=== PATIENT | male | born 1930 | race Caucasian/White ===

== ENCOUNTER 2016-08-05 06:23 | Inpatient (IN) | payer BC, MEDICARE, OTHER ==
[~2016-08-05] VITALS: Ht 180.3 cm; Wt 80.5 kg
[2016-08-05] VITALS (10 sets, daily range): BP systolic 95–132; BP diastolic 57–79; PULSE 80–106; RESP 16–22; TEMP 97.8–102.1; O2SAT 89–95
[~2016-08-05 06:23] MED LIST: ACET325S8 PO; ALBU25IPRN INH; ALLO300T2 PO; AZIT250T43 PO; CEFU1TAB43 PO; CITA10SO PO; CREON24 PO; DILTCD120 PO; DOCU1CAP39 PO; DONE10TA14 PO; ECOT81TA2 PO; IMOD2TAB PO; KCL20 PO; LEVO150T7 PO; MAGN30S PO; MIRA25TA PO; NYST100010 TOP; PRIN5TAB PO; RAPA8CAP PO; TAMS0.4C67 PO
--- NOTE | 2016-08-05 06:28 | PD ---
HPI Chief Complaint: altered mental status Time Seen by Provider: 06:25 Travel History International Travel<30 days: No Contact w/Intl Traveler<30days: No History of Present Illness HPI This is an 85-year-old male who presents from an assisted living haven't been found on his lower, unclear if he fell or he was laying there. The senior living says he was last seen normal at 11:00 with this is unclear whether this was in the morning or the evening. The patient is unable to verbalize any complaints. PFSH Past Medical History Depression: Yes Cancer: No Cardiovascular Problems: Yes (CAD) Coronary Artery Disease: Yes Dementia: Yes Diminished Hearing: Yes Endocrine: Yes Gout: Yes Genitourinary: Yes (BPH, UTI ) Hypertension: Yes Immune Disorder: No Musculoskeletal: No Neurologic: Yes (Dementia) Psychiatric: Yes Reproductive: No Respiratory: No Immunizations Current: Yes Thyroid Disease: Yes Past Surgical History Other Surgery: No Social History Alcohol Use: Yes (ONCE A WEEK) Tobacco Use: No Substance Use: No Allergies-Medications (Allergen,Severity, Reaction): Coded Allergies: No Known Allergies (Unverified , 08/05/16) Reported Meds & Prescriptions Reported Meds & Active Scripts Active Mycostatin Ointment (Nystatin) 15 Gm Oint 1 Dose TOP BID 10 Days Kcl 20 Meq Tab (Potassium Chloride) 20 Meq Tabcr 20 Meq PO DAILY 3 Days Azithromycin 250 Mg Tab 250 Mg PO DAILY 10 Days Ceftin 500 Mg Tab (Cefuroxime Axetil) 500 Mg Tab 500 Mg PO BID 10 Days Milk Of Magnesia (Magnesium Hydroxide) 30 Ml Susp 30 Ml PO Q12H PRN 90 Days Colace 100 Mg Cap (Docusate Sodium) 100 Mg Cap 100 Mg PO BID 90 Days Diltiazem HCl ER (Diltiazem HCl) 120 Mg Cap 120 Mg PO DAILY 90 Days Ecotrin (Aspirin) 81 Mg Tabec 81 Mg PO DAILY 90 Days Albuterol Sulfate 0.083 % Neb 2.5 Mg INH Q2HR NEB PRN Reported Flomax (Tamsulosin HCl) 0.4 Mg Cap 0.4 Mg PO DAILY Donepezil 10 mg 10 Mg Tab 10 Mg PO DAILY Imodium A-D (Loperamide HCl) 2 Mg Tab 2 Mg PO Q6H PRN DO NOT EXCEED 8 CAPSULES/TABLETS 24 HOURS Acetaminophen 325 Mg Tab 650 Mg PO Q6 PRN Creon (Amylase/Lipase/Protease) 24,000 Unt Cap 24,000 Units PO TID TAKE BEFORE MEALS Prinivil (Lisinopril) 5 Mg Tab 5 Mg PO DAILY Rapaflo 8 mg (Silodosin 8 mg) 8 Mg Cap 8 Mg PO DAILY Myrbetriq (Mirabegron) 25 Mg Tab 25 Mg PO DAILY Levothyroxine 150 mcg (Levothyroxine Sodium) 150 Mcg Tab 150 Mcg PO DAILY Citalopram Hydrobromide 10 Mg/5 Ml Payton 10 Mg PO DAILY Allopurinol 300 Mg Tab 300 Mg PO DAILY Review of Systems ROS Limitations: Altered Mental Status Physical Exam Narrative GENERAL: Frail, elderly male in no acute distress SKIN: Warm and dry. HEAD: Atraumatic. Normocephalic. EYES: Pupils equal and round. No injection or drainage. ENT: Dry mucous membranes. NECK: Trachea midline. CARDIOVASCULAR: Regular rate and rhythm. No murmur appreciated. RESPIRATORY: Clear to auscultation. Breath sounds equal bilaterally. GASTROINTESTINAL: Abdomen soft, tender to palpation in the suprapubic region with some fullness in the lower abdomen. MUSCULOSKELETAL: No obvious deformities. NEUROLOGICAL: Confused, mumbling but not saying words Moving all extremities. PSYCHIATRIC: Agitated Data Data Last Documented VS Vital Signs Date Time Temp Pulse Resp B/P Pulse Ox O2 Delivery O2 Flow Rate FiO2 08/05/16 06:57 102.1 08/05/16 06:33 Room Air 08/05/16 06:26 103 20 95/57 92 Orders Complete Blood Count With Diff (08/05/16 06:26) Comprehensive Metabolic Panel (08/05/16 06:26) Prothrombin Time / Inr (Pt) (08/05/16 06:26) Act Partial Throm Time (Ptt) (08/05/16 06:26) Lactic Acid Sepsis Protocol (08/05/16 06:26) Troponin I (08/05/16 06:26) Urinalysis - C+S If Indicated (08/05/16 06:26) Blood Culture (08/05/16 06:26) Blood Glucose (08/05/16 06:26) Ecg Monitoring (08/05/16 06:26) Iv Access Insert/Monitor (08/05/16 06:26) Oximetry (08/05/16 06:26) Oxygen Administration (08/05/16 06:26) Ct Brain W/O Iv Contrast(Rout) (08/05/16 06:26) Chest, Single Ap (08/05/16 ) Cath For Specimen (08/05/16 06:26) Sodium Chlor 0.9% 1000 Ml Inj (Ns 1000 M (08/05/16 06:30) Sodium Chlor 0.9% 1000 Ml Inj (Ns 1000 M (08/05/16 06:30) Creatine Kinase (Cpk) (08/05/16 06:30) Vancomycin Inj (Vancomycin Inj) (08/05/16 07:00) Cefepime Inj (Maxipime Inj) (08/05/16 07:00) Electrocardiogram (08/05/16 06:32) MDM Medical Decision Making Medical Screen Exam Complete: Yes Emergency Medical Condition: Yes Differential Diagnosis Urinary tract infection, pneumonia, sepsis, electrolyte abnormality, intracranial hemorrhage Narrative Course This is an 85-year-old male who presents to the emergency department with altered mental status. He is febrile and tachycardic consistent with sepsis. He was placed on a monitor and an IV was established. Labs were obtained. He was given 2 L of IV hydration, IV vancomycin and cefepime. Case is signed out to Dr. Cole who will follow-up on the patient's results. Doreen De La Cruz MD Aug 05, 2016 06:28
[2016-08-05] MEDS ORDERED: SODIUM CHLOR 0.9% 1000 ML INJ 1,000 ML IV ONE ×2 (06:30)
--- NOTE | 2016-08-05 06:54 | RADRPT ---
EXAM DATE/TIME: 08/05/2016 06:35 [facility] COMPARISON: CHEST SINGLE AP, August 26, 2015, 10:08. INDICATIONS : Shortness of breath. MEDICAL HISTORY : None. SURGICAL HISTORY : None. ENCOUNTER: Initial ACUITY: 1 day PAIN SCORE: Non-responsive. LOCATION: Bilateral chest FINDINGS: A single view of the chest demonstrates mild infiltrate in the right middle lobe and left lower lung. Otherwise the rest of the lungs are grossly clear. There are no pleural effusions or pulmonary edema . The heart size is stable. The bony structures are stable.. CONCLUSION: Mild right middle lobe infiltrate and left lower lung infiltrate. Jhony Wahl MD on August 05, 2016 at 6:51 Board Certified Radiologist. This report was verified electronically.
[2016-08-05] MEDS ORDERED: CEFEPIME INJ 2,000 MG in SODIUM CHLORIDE 0.9% INJ 100 ML IV ONE (07:00)
[2016-08-05] MEDS ORDERED: VANCOMYCIN INJ 1,000 MG in SODIUM CHLOR 0.9% 250 ML INJ 250 ML IV ONE (07:00)
--- NOTE | 2016-08-05 07:21 | RADRPT ---
EXAM DATE/TIME: 08/05/2016 07:08 [facility] COMPARISON: CT BRAIN W/O CONTRAST, August 18, 2015, 13:06. INDICATIONS : Found on floor RADIATION DOSE: 45.82 CTDIvol (mGy) MEDICAL HISTORY : Cardiovascular disease. Hypertension. SURGICAL HISTORY : None. ENCOUNTER: Initial ACUITY: 1 day PAIN SCALE: 0/10 LOCATION: cranial TECHNIQUE: Multiple contiguous axial images were obtained of the head. Using automated exposure control and adj ustment of the mA and/or kV according to patient size, radiation dose was kept as low as reasonably a chievable to obtain optimal diagnostic quality images. FINDINGS: CEREBRUM: The ventricles are normal for age. No evidence of midline shift, mass lesion, hemorrhage or acute in farction. No extra-axial fluid collections are seen. POSTERIOR FOSSA: The cerebellum and brainstem are intact. The 4th ventricle is midline. The cerebellopontine angle i s unremarkable. EXTRACRANIAL: The visualized portion of the orbits is intact. Extensive sinus disease is appreciated with mucoperio steal thickening in the maxillary sinuses as well as extensive changes in the bilateral ethmoid air c ells and air-fluid levels in the sphenoid SKULL: The calvaria is intact. No evidence of skull fracture. CONCLUSION: Intracranially normal for age with no change . Extensive sinus disease as described above John Schmitz MD on August 05, 2016 at 7:17 Board Certified Radiologist. This report was verified electronically.
[2016-08-05 07:56] LABS: BASOPHIL # 0.1 TH/MM3 (0-0.2); BASOPHIL % 0.3 % (0.0-2.0); HEMO FLAGS DIFF FINAL; LYMPH % 0.5 % (9.0-44.0); LYMPHOCYTE # 0.1 TH/MM3 (1.0-4.8); MEAN CELL VOLUME 93.9 FL (80.0-100.0); MEAN CORPUSCULAR HEMOGLOBIN 31.1 PG (27.0-34.0); MEAN CORPUSCULAR HGB CONC 33.2 % (32.0-36.0); MONO % 2.9 % (0.0-8.0); NEUT % 96.3 % (16.0-70.0); PLATELET COUNT 148 TH/MM3 (150-450); RED BLOOD COUNT 4.48 MIL/MM3 (4.50-5.90); RED CELL DISTRIBUTION WIDTH 15.7 % (11.6-17.2); WHITE BLOOD COUNT 18.7 TH/MM3 (4.0-11.0)
[2016-08-05 08:12] LABS: BACTERIA, URINE MANY /hpf; BLOOD, URINE LARGE (NEG); COMMENT (UR) CATH-CULTURE IND; CULTURE IF INDICATED CATH CULTURE IND; GLUCOSE,URINE NEG (NEG); KETONE, URINE NEG (NEG); NITRITE,URINE NEG (NEG); PH, URINE 5.5 (5.0-8.5); SQUAMOUS EPITHELIAL CELL URINE 8 /hpf (0-5)
[2016-08-05 08:13] LABS: URINE COLOR BROWN (YELLW/STRAW)
[2016-08-05 08:17] LABS: ALKALINE PHOSPHATASE 128 U/L (45-117); ALT (GPT) 16 U/L (12-78); ANION GAP 8 MEQ/L (5-15); AST (GOT) 20 U/L (15-37); BICARBONATE 25.7 MEQ/L (21.0-32.0); BLOOD UREA NITROGEN 36 MG/DL (7-18); CHLORIDE 104 MEQ/L (98-107); GLOMERULAR FILTRATION RATE 19 ML/MIN (>89); POTASSIUM 4.7 MEQ/L (3.5-5.1); SODIUM (NA) 138 MEQ/L (136-145)
[2016-08-05 08:18] LABS: INTERNATIONAL NORMALIZED RATIO 1.2 RATIO; PROTHROMBIN TIME - PATIENT 13.2 SEC (9.8-11.6)
--- NOTE | 2016-08-05 09:10 | PD ---
Physical Exam Date Seen by Provider: Aug 05, 2016 Time Seen by Provider: 09:08 Narrative 85-year-old male was brought in as confused found laying down on the floor of his apartment and possible sepsis. He had a temperature 102.5 upon arrival. Patient lives in an assisted care facility. His mental status is not at his baseline. Patient was seen by the previous ER physician who started a septic workup thinking patient probably has urosepsis. Blood test and urinalysis has come back and patient indeed has a UTI with sepsis. Chest x-ray also shows a possible infiltrate in the right middle lobe. Patient has received 2 L of IV fluid and onto his third liter as per the sepsis protocol. He was given IV cefepime and vancomycin orders by the previous ER physician. I just reassessed the patient and he still continues to be confused and delirious. CAT scan of the head is within normal limit. Awaiting for Dr. Neil who is his primary care physician to call back to admit the patient. Data Data Last Documented VS Vital Signs Date Time Temp Pulse Resp B/P Pulse Ox O2 Delivery O2 Flow Rate FiO2 08/05/16 08:42 101 22 132/62 94 Nasal Cannula 2 08/05/16 06:57 102.1 Orders Complete Blood Count With Diff (08/05/16 06:26) Comprehensive Metabolic Panel (08/05/16 06:26) Prothrombin Time / Inr (Pt) (08/05/16 06:26) Act Partial Throm Time (Ptt) (08/05/16 06:26) Lactic Acid Sepsis Protocol (08/05/16 06:26) Troponin I (08/05/16 06:26) Urinalysis - C+S If Indicated (08/05/16 06:26) Blood Culture (08/05/16 06:26) Blood Glucose (08/05/16 06:26) Ecg Monitoring (08/05/16 06:26) Iv Access Insert/Monitor (08/05/16 06:26) Oximetry (08/05/16 06:26) Oxygen Administration (08/05/16 06:26) Ct Brain W/O Iv Contrast(Rout) (08/05/16 06:26) Chest, Single Ap (08/05/16 ) Cath For Specimen (08/05/16 06:26) Sodium Chlor 0.9% 1000 Ml Inj (Ns 1000 M (08/05/16 06:30) Sodium Chlor 0.9% 1000 Ml Inj (Ns 1000 M (08/05/16 06:30) Creatine Kinase (Cpk) (08/05/16 06:30) Vancomycin Inj (Vancomycin Inj) (08/05/16 07:00) Cefepime Inj (Maxipime Inj) (08/05/16 07:00) Electrocardiogram (08/05/16 06:32) Urinary Catheter Insert/Apply (08/05/16 07:33) Urine Culture (08/05/16 07:15) Acetaminophen Supp (Tylenol Supp) (08/05/16 09:15) Admit Order (Ed Use Only) (08/05/16 09:23) Labs Laboratory Tests Test 08/05/16 07:15 White Blood Count 18.7 TH/MM3 Red Blood Count 4.48 MIL/MM3 Hemoglobin 13.9 GM/DL Hematocrit 42.0 % Mean Corpuscular Volume 93.9 FL Mean Corpuscular Hemoglobin 31.1 PG Mean Corpuscular Hemoglobin 33.2 % Concent Red Cell Distribution Width 15.7 % Platelet Count 148 TH/MM3 Mean Platelet Volume 8.1 FL Neutrophils (%) (Auto) 96.3 % Lymphocytes (%) (Auto) 0.5 % Monocytes (%) (Auto) 2.9 % Eosinophils (%) (Auto) 0.0 % Basophils (%) (Auto) 0.3 % Neutrophils # (Auto) 18.0 TH/MM3 Lymphocytes # (Auto) 0.1 TH/MM3 Monocytes # (Auto) 0.5 TH/MM3 Eosinophils # (Auto) 0.0 TH/MM3 Basophils # (Auto) 0.1 TH/MM3 CBC Comment DIFF FINAL Differential Comment Prothrombin Time 13.2 SEC Prothromb Time International 1.2 RATIO Ratio Activated Partial 29.0 SEC Thromboplast Time Urine Color BROWN Urine Turbidity CLOUDY Urine pH 5.5 Urine Specific [place] 1.020 Urine Protein 100 mg/dL Urine Glucose (UA) NEG mg/dL Urine Ketones NEG mg/dL Urine Occult Blood LARGE Urine Nitrite NEG Urine Bilirubin NEG Urine Urobilinogen 4.0 MG/DL Urine Leukocyte Esterase LARGE Urine RBC /hpf Urine WBC /hpf Urine WBC Clumps MANY Urine Squamous Epithelial 8 /hpf Cells Urine Amorphous Sediment RARE Urine Bacteria MANY /hpf Microscopic Urinalysis Comment CATH-CULTURE IND Sodium Level 138 MEQ/L Potassium Level 4.7 MEQ/L Chloride Level 104 MEQ/L Carbon Dioxide Level 25.7 MEQ/L Anion Gap 8 MEQ/L Blood Urea Nitrogen 36 MG/DL Creatinine 3.07 MG/DL Estimat Glomerular Filtration 19 ML/MIN Rate Random Glucose 132 MG/DL Lactic Acid Level 2.8 mmol/L Calcium Level 8.2 MG/DL Total Bilirubin 1.0 MG/DL Aspartate Amino Transf 20 U/L (AST/SGOT) Alanine Aminotransferase 16 U/L (ALT/SGPT) Alkaline Phosphatase 128 U/L Total Creatine Kinase 118 U/L Troponin I LESS THAN 0.02 NG/ML Total Protein 6.2 GM/DL Albumin 2.6 GM/DL [facility] Supervised Visit with PRITI: No Narrative Course 9:24 AM I was told by the nurse that several attempts to put a Sofia catheter was done as part of the sepsis protocol and measure the urine output. It was unsuccessful. The last attempt by the nurse was with a 14 Maltese coud catheter. I spoke with the admitting physician Dr. Neil and I have expressed this to him. In my opinion patient should get a urology consultation for possible enlarged prostate. He however did have a large urine output by incontinence and IV did not think he is fully obstructed. Physician Communication Physician Communication Dr. Neil Diagnosis Primary Impression: Sepsis Qualified Code: A41.9 - Sepsis, due to unspecified organism Additional Impressions: UTI (urinary tract infection) Qualified Code: N39.0 - Urinary tract infection without hematuria, site unspecified Pneumonia Qualified Code: J18.1 - Pneumonia of right middle lobe due to infectious organism Altered mental status Qualified Code: R41.0 - Delirium Acute renal failure Qualified Code: N17.9 - Acute renal failure, unspecified acute renal failure type Enlarged prostate Admitting Information Admitting Physician Requests: it Jackelyn Cole MD Aug 05, 2016 09:10
[2016-08-05] MEDS ORDERED: ACETAMINOPHEN 650 MG SUPP RECTAL ONE (09:15)
[2016-08-05 09:47] LABS: LACTIC ACID GHOST NOT REPORTABLE
--- NOTE | 2016-08-05 11:12 | HHI.HP ---
History of Present Illness Primary Care Physician Raymundo Neil MD Admission Diagnosis UTI, sepsis, AMS, pneumonia, enlarged prostate, acute renal failure Diagnoses: (1) Sepsis (2) UTI (urinary tract infection) (3) Altered mental status (4) Pneumonia (5) Enlarged prostate (6) Acute renal failure (7) Atrial fibrillation by electrocardiogram (8) Dehydration History of Present Illness 85 Y CM, FOUND DOWN IN HIS [facility] APT. APPEARS PT MAY BE ON HOSPICE. I CALLED [facility] YET NO ANSWER YET. PT SENT TO [facility]. FOUND TO BE SEPTIC OUTLINED BELOW. I SPOKE WITH THE ER MD FOR ADMISSION. THEY WERE UNABLE TO PASS [facility] AND SUGGESTED UROLOGIST. PT IS SEEN IN ER C POD. MUCH WEAKER THAN USUAL HE IS LETHARGIC AND NEAR COMATOSE. UNABLE TO OBTAIN HISTORY FROM HIM. SPOKE WITH RN HERE. CALLED OUT TO [facility]. Sepsis Criteria SIRS Criteria (2 or more): Temp > 100.9 or < 96.8 Sepsis Criteria (SIRS+source): Infect source susp/known Severe Sepsis (+one): Organ Dysfunction, Lactate >2 Multiple Organ Dysfunction Syn: Evidence -2 organs failing Criteria Outcome: Meets severe sepsis criteria Review of Systems ROS Limitations: Clinical Condition, Altered Mental Status, Uncooperative, Hearing Impaired, Poor Historian Past Family Social History Allergies: Coded Allergies: No Known Allergies (Unverified , 08/05/16) Past Medical History AF PNA Past Surgical History NC Family History NC Social History [facility] RES, RETIRED, NO E/T/D Physical Exam Vital Signs Vital Signs Date Time Temp Pulse Resp B/P Pulse Ox O2 Delivery O2 Flow Rate FiO2 08/05/16 10:47 20 08/05/16 10:02 106 22 125/60 95 Nasal Cannula 2 08/05/16 08:42 101 22 132/62 94 Nasal Cannula 2 08/05/16 08:42 94 Nasal Cannula 2 08/05/16 08:15 100 20 132/62 89 Room Air 08/05/16 06:57 102.1 08/05/16 06:33 Room Air 08/05/16 06:26 100.1 103 20 95/57 92 Physical Exam GENERAL: This is a chronically ill appearing, desheveled, lethargic SKIN: No rashes, ecchymoses or lesions. Cool and dry. HEAD: Atraumatic. Normocephalic. No temporal or scalp tenderness. EYES: Pupils equal round and reactive. Extraocular motions intact. No scleral icterus. No injection or drainage. ENT: Nose without bleeding, purulent drainage or septal hematoma. Throat without erythema, tonsillar hypertrophy or exudate. Uvula midline. Airway patent. NECK: Trachea midline. No JVD or lymphadenopathy. Supple, nontender, no meningeal signs. CARDIOVASCULAR: Regular rate and rhythm without murmurs, gallops, or rubs. RESPIRATORY: Clear to auscultation. Breath sounds equal bilaterally. No wheezes , rales, or rhonchi. GASTROINTESTINAL: Abdomen soft, non-tender, nondistended. No hepato-splenomegaly , or palpable masses. No guarding. MUSCULOSKELETAL: Extremities without clubbing, cyanosis, or edema. No joint tenderness, effusion, or edema noted. No calf tenderness. Negative Homans sign bilaterally. NEUROLOGICAL: Cranial nerves II through XII intact. Motor and sensory grossly within normal limits. 1 out of 5 muscle strength in all muscle groups. Laboratory Laboratory Tests Test 08/05/16 07:15 White Blood Count 18.7 Red Blood Count 4.48 Hemoglobin 13.9 Hematocrit 42.0 Mean Corpuscular Volume 93.9 Mean Corpuscular Hemoglobin 31.1 Mean Corpuscular Hemoglobin 33.2 Concent Red Cell Distribution Width 15.7 Platelet Count 148 Mean Platelet Volume 8.1 Neutrophils (%) (Auto) 96.3 Lymphocytes (%) (Auto) 0.5 Monocytes (%) (Auto) 2.9 Eosinophils (%) (Auto) 0.0 Basophils (%) (Auto) 0.3 Neutrophils # (Auto) 18.0 Lymphocytes # (Auto) 0.1 Monocytes # (Auto) 0.5 Eosinophils # (Auto) 0.0 Basophils # (Auto) 0.1 CBC Comment DIFF FINAL Differential Comment Prothrombin Time 13.2 Prothromb Time International 1.2 Ratio Activated Partial 29.0 Thromboplast Time Urine Color BROWN Urine Turbidity CLOUDY Urine pH 5.5 Urine Specific [place] 1.020 Urine Protein 100 Urine Glucose (UA) NEG Urine Ketones NEG Urine Occult Blood LARGE Urine Nitrite NEG Urine Bilirubin NEG Urine Urobilinogen 4.0 Urine Leukocyte Esterase LARGE Urine RBC Urine WBC Urine WBC Clumps MANY Urine Squamous Epithelial 8 Cells Urine Amorphous Sediment RARE Urine Bacteria MANY Microscopic Urinalysis Comment CATH-CULTURE IND Sodium Level 138 Potassium Level 4.7 Chloride Level 104 Carbon Dioxide Level 25.7 Anion Gap 8 Blood Urea Nitrogen 36 Creatinine 3.07 Estimat Glomerular Filtration 19 Rate Random Glucose 132 Lactic Acid Level 2.8 Calcium Level 8.2 Total Bilirubin 1.0 Aspartate Amino Transf 20 (AST/SGOT) Alanine Aminotransferase 16 (ALT/SGPT) Alkaline Phosphatase 128 Total Creatine Kinase 118 Troponin I LESS THAN 0.02 Total Protein 6.2 Albumin 2.6 Date/Time Procedure Status Source Growth 08/05/16 07:15 Urine Culture Received Urine Catheterized Urine Pending 08/05/16 07:15 Aerobic Blood Culture Received Blood Peripheral Pending 08/05/16 07:15 Anaerobic Blood Culture Received Blood Peripheral Pending Result Diagram: 08/05/1615 08/05/1615 Imaging Last [address] 08/05/16625 Signed Impressions: Service Date/Time: July 07:08 - CONCLUSION: Intracranially normal for age with no change . Extensive sinus disease as described above John Schmitz MD Chest X-Ray 08/05/16 0000 Signed Impressions: Service Date/Time: July 06:35 - CONCLUSION: Mild right middle lobe infiltrate and left lower lung infiltrate. Jhony Wahl MD Assessment and Plan Problem List: (1) Sepsis Status: Acute (2) Altered mental status Status: Acute (3) Enlarged prostate Status: Acute (4) Pneumonia Status: Acute (5) UTI (urinary tract infection) Status: Acute (6) Acute renal failure Status: Acute (7) Atrial fibrillation, chronic Status: Acute (8) Dehydration Status: Acute (9) Lactic acidosis Status: Acute (10) Weak Status: Acute Assessment and Plan PLAN: IV ABX IVF BLOOD CULTURES UA CS UROLOGY CONSULT FOR [facility] INSERTION ID CONSULT INPT ADMIT FOR THE ABOVE DX AND PLAN. EXPECT 5 D INPT STAY IF PT SURVIVES. PT WOULD W/O INPT ADMIT FOR THE ABOVE DX AND PLAN. SEE MY ORDERS PLEASE. Problem Qualifiers (1) Sepsis: Qualified Code: A41.9 - Sepsis, due to unspecified organism (2) UTI (urinary tract infection): Qualified Code: N39.0 - Urinary tract infection without hematuria, site unspecified (3) Altered mental status: Qualified Code: R41.0 - Delirium (4) Pneumonia: Qualified Code: J18.1 - Pneumonia of right middle lobe due to infectious organism (5) Acute renal failure: Qualified Code: N17.9 - Acute renal failure, unspecified acute renal failure type Raymundo Neil MD Aug 05, 2016 11:11
[2016-08-05] MEDS ORDERED: MAGNESIUM HYDROXIDE SUSP 30 ML CUP PO PRN ×2 (11:15→12:00)
[2016-08-05] MEDS ORDERED: METOCLOPRAMIDE HCL 10 MG/2 ML VIAL IV PUSH PRN (11:15)
[2016-08-05] MEDS ORDERED: SODIUM CHLORIDE 0.9% FLUSH 5 ML FLUSH FLUSH PRN (11:15)
[2016-08-05] MEDS ORDERED: ACETAMINOPHEN 325 MG TAB PO PRN (11:15)
[2016-08-05] MEDS ORDERED: PROCHLORPERAZINE 25 MG SUPP PR PRN (11:15)
[2016-08-05] MEDS ORDERED: NALOXONE HCL 0.4 MG/ML AMP IV PRN (11:15)
[2016-08-05] MEDS ORDERED: ONDANSETRON HCL 4 MG/2 ML VIAL IVP PRN (11:15)
[2016-08-05] MEDS ORDERED: BISACODYL 10 MG SUPP PR PRN (11:15)
[2016-08-05] MEDS ORDERED: LORazepam 2 MG/ML VIAL IV PUSH PRN (11:30)
[2016-08-05] MEDS ORDERED: hydrALAZINE HCL 20 MG/ML VIAL IV PUSH PRN (11:30)
[2016-08-05] MEDS ORDERED: Vancomycin Consult Pharmacy 1 EA XX SCH (11:30)
[2016-08-05] MEDS ORDERED: ACETAMINOPHEN/HYDROcodone 325 MG/5 MG TAB PO PRN (11:30)
[2016-08-05] MEDS ORDERED: cloNIDine HCL 0.1 MG TAB PO PRN (11:30)
[2016-08-05] MEDS ORDERED: IMOD2TAB3 PO (11:45)
[2016-08-05] MEDS ORDERED: MILKSUS PO (11:45)
[2016-08-05] MEDS ORDERED: ASPI1TAB91 PO (11:45)
[2016-08-05] MEDS ORDERED: NYST10007 TOPICAL (11:45)
[2016-08-05] MEDS ORDERED: MIRA50TA PO (11:45)
[2016-08-05] MEDS ORDERED: CREON24 PO (11:45)
[2016-08-05] MEDS ORDERED: DILT-60 PO (11:45)
[2016-08-05] MEDS ORDERED: CELE10TA PO (11:45)
[2016-08-05] MEDS ORDERED: TYLE325T PO (11:45)
[2016-08-05] MEDS ORDERED: LOPERAMIDE HCL 2 MG CAP PO PRN (11:45)
[2016-08-05] MEDS ORDERED: TAMS0.4C4 PO (11:45)
[2016-08-05] MEDS ORDERED: POTA-245 PO (11:45)
[2016-08-05] MEDS ORDERED: ALBU0.08 NEB (11:45)
[2016-08-05] MEDS ORDERED: ARIC10TA PO (11:45)
[2016-08-05] MEDS ORDERED: LEVO-154 PO (11:45)
[2016-08-05] MEDS ORDERED: ALLO300T2 PO (11:45)
[2016-08-05] MEDS: RESP: ALBUTEROL 2.5 MG/IPRATROPIUM 0.5 MG NEB (SCH) NEB ×2 (11:49→16:45)
[2016-08-05] MEDS ORDERED: ONDANSETRON HCL 4 MG/2 ML VIAL IV PUSH ONE (12:00)
[2016-08-05] MEDS ORDERED: ePHEDrine/NS 25 MG/5 ML SYR IV ONE (12:00)
[2016-08-05] MEDS ORDERED: PROPOFOL 200 MG/20 ML AMP IV ONE (12:00)
[2016-08-05] MEDS ORDERED: PHENYLEPH/NS 1000 MCG/10 ML SYR IV ONE (12:00)
[2016-08-05] MEDS: SODIUM CHLOR 0.9% 1000 ML INJ 1,000 ML IV SCH ×2 (12:26→21:40)
[2016-08-05] MEDS: HEPARIN SODIUM - SQ 10,000 UNITS/ML VIAL SQ SCH (12:27)
[2016-08-05] MEDS: LIPASE/PROTEASE/AMYLASE (24,000/76,000/120,000) CAP PO SCH ×2 (13:00→18:00)
[2016-08-05] MEDS: PIPERACIL-TAZO 3.375 GM PREMIX 50 ML IV SCH ×2 (14:06→21:40)
--- NOTE | 2016-08-05 14:35 | MB ---
cc: BRANDIN BUCK MD DATE OF CONSULTATION: 08/05/2016 REASON FOR CONSULTATION 1. Difficult Sofia catheter placement. 2. Urosepsis. 3. Renal failure. 4. History of prostate cancer status post external beam radiation with brachytherapy. HISTORY OF PRESENT ILLNESS The patient is an 85-year-old male with history of prostate cancer status post external beam radiation and brachytherapy who presented from assisted living earlier this morning after he was found on the floor with altered mental status. [place] [facility] says he was last seen around 11 o'clock last night and was doing fine. However, this morning when went to check on him he was laying on the floor and seemed to be very confused. A Sofia catheter was attempted to be placed at the assisted living facility but was unsuccessful and it was noted that his urine had a strong odor to it and appeared to be a purulent-like material. He was then transferred to [facility] for further evaluation. In the [facility] he was attempted to have a Sofia catheter placed but was unsuccessful and urology was consulted for catheter placement. He was also found to have elevated white count of 18,000, febrile 103 and a creatinine of 3.0. The patient is confused and unable to give accurate history. PAST MEDICAL HISTORY Significant for: 1. Prostate cancer. 2. Hypertension. 3. Coronary artery disease. 4. Dementia. 5. History of COPD. 6. Atrial fibrillation. PAST SURGICAL HISTORY None per the records. FAMILY HISTORY Unobtainable. SOCIAL HISTORY Unobtainable. ALLERGIES NO KNOWN DRUG ALLERGIES. REVIEW OF SYSTEMS Unobtainable. PHYSICAL EXAMINATION VITAL SIGNS: Temperature 102.1, pulse 87, respiratory rate 20, BP 119/59, sating 95% on nasal cannula at 2 liters. GENERAL: He is awake but disoriented, no apparent distress. HEENT: Head is normocephalic, atraumatic. No scleral icterus. Extraocular muscles intact. LUNGS: Clear to auscultation bilaterally. No wheezes, rales or rhonchi. HEART: Regular rhythm. ABDOMEN: Soft, nontender, nondistended. Positive bowel sounds. GENITOURINARY: His bladder is slightly palpable. His penis is uncircumcised. Testes descended bilaterally, normal in size and consistency. RECTAL: Not indicated at this time. EXTREMITIES: Nontender, no clubbing, cyanosis or edema. SKIN: No ulcers or rashes. PSYCHE: He is confused. LABORATORY DATA Labs show white count 18.7, hemoglobin 13.5, hematocrit 42.0, platelet count 148, sodium 130, potassium 4.7, chloride 104, bicarb 25.7, BUN 36, creatinine 3.07, glucose 132. His urine showed large leukocyte esterase, large occult blood with negative nitrates. IMAGING STUDIES None. ASSESSMENT The patient is a 85-year-old male with history of prostate cancer status post external beam radiation and brachytherapy, who presents with what appears to be urosepsis with acute renal failure. PLAN A bedside ultrasound was done which showed the patient to be greater than 300 in his bladder. 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 I will keep the patient n.p.o. and will discuss with his Power of [employer] about taking him to the OR for ___ catheter placement as the patient is on hospice. Thank you for this consult. Brandin Buck MD EMIona/DAVID /1:19 PM /2:07 PM
[2016-08-05] MEDS ORDERED: AZITHROMYCIN INJ 500 MG in SODIUM CHLOR 0.9% 250 ML INJ 250 ML IV SCH (15:00)
--- NOTE | 2016-08-05 15:28 | PD.ID.CON ---
History of Present Illness Service Infectious disease Consult Requested By Dr. Neil Reason for Consult Evaluation and management of severe sepsis in a patient with urinary obstruction possible UTI. Primary Care Physician Raymundo Neil MD Diagnoses: History of Present Illness Mr. John is an 85-year-old male who is a resident of a custodial facility, history of prostate cancer status post external beam radiation and brachytherapy who presented from an assisted living facility as he was found on the floor with altered mental status. The shelter personnel last saw him on the night before and he was doing okay and had gone to bed. On the morning of the admission patient was found on the floor and was very confused. A Sofia catheter was attempted to be placed at the assisted living facility but was unsuccessful and was noted that the urine had a very strong ordered.. Some of the urine that did come out. To be very purulent- like material. He was then transferred to [facility] emergency department for further evaluation. In the [place] emergency department patient underwent workup for sepsis as patient had an elevated white count of 18,000 he was febrile at 103, tachycardic as well as creatinine 3.0. A urology consult was called Sofia catheter was attempted to be placed and since it was unsuccessful patient was seen by Dr. Owusu and taken to the operating room and Sofia catheter inserted. Neurology thinks the patient would need this Sofia catheter long-term till outpatient and may even be a candidate for suprapubic catheter insertion at some point. Infectious disease is consulted for evaluation and management of severe sepsis possibly UTI. Review of Systems ROS Limitations: Altered Mental Status Past Family Social History Allergies: Coded Allergies: No Known Allergies (Unverified , 08/05/16) Past Medical History Prostate cancer status post radiation Possible urinary obstruction Hypertension Coronary artery disease Dementia History of COPD Atrial fibrillation Hypothyroidism Past Surgical History None per records. Reported Medications Reported Meds & Active Scripts Active Reported Imodium A-D (Loperamide HCl) 2 Mg Tab 2 Mg PO Q6HR PRN Not to exceed 8 tablets per day. Nystop Topical (Nystatin Topical) 100,000 Unit/Gm Powd 1 Applic TOPICAL BID PRN Apply to groin area Tylenol (Acetaminophen) 325 Mg Tab 650 Mg PO Q6H PRN Milk of Magnesia Liq (Magnesium Hydroxide) 400 Mg/5 Ml Susp 30 Ml PO Q12HR PRN Albuterol Neb (Albuterol Sulfate) 2.5 Mg/3 Ml Neb 2.5 Mg NEB Q2HR PRN Creon (Amylase/Lipase/Protease) 24,000-76,000-120,000 Units Cap 1 Cap PO TID Tamsulosin (Tamsulosin HCl) 0.4 Mg Cap 0.4 Mg PO DAILY Myrbetriq (Mirabegron) 50 Mg Tab 50 Mg PO DAILY - for overactive bladder Levothyroxine (Levothyroxine Sodium) 175 Mcg Tab 175 Mcg PO DAILY Klor-Con M20 (Potassium Chloride Microencaps) 20 Meq Tab 20 Meq PO DAILY Aricept (Donepezil) 10 Mg Tab 10 Mg PO DAILY Diltiazem CD 24 HR 120 Mg Caper 120 Mg PO DAILY Celexa (Citalopram Hydrobromide) 10 Mg Tab 10 Mg PO DAILY Allopurinol 300 Mg Tab 300 Mg PO DAILY Aspirin Adult Low Strength (Aspirin) 81 Mg Tabdr 81 Mg PO DAILY Active Ordered Medications Current Medications Medications (Trade) Dose Ordered Sig/Gal Route Start Time Stop Time Status Last Admin (Colace) 100 mg BID PO 08/05/16 21:00 (Synthroid) 150 mcg DAILY@06 PO 08/06/16 06:00 (Milk Of Magnesia Liq) 30 ml Q12H PRN PO 08/05/16 12:00 (Flomax) 0.4 mg DAILY PO 08/06/16 09:00 (CeleXA) 10 mg DAILY PO 08/06/16 09:00 (Creon 24-76-120) 1 cap TID PO 08/05/16 13:00 (Cardizem Cd) 120 mg DAILY PO 08/06/16 09:00 (Aricept) 10 mg DAILY PO 08/06/16 09:00 Loperamide HCl 2 mg 2 mg Q6H PRN PO 08/05/16 11:45 (NS 1000 ml Inj) 1,000 ml @ 100 mls/hr Q10H IV 08/05/16 12:00 08/05/16 12:26 (NS Flush) 2 ml UNSCH PRN FLUSH 08/05/16 11:15 (NS Flush) 2 ml BID FLUSH 08/05/16 21:00 (Tylenol) 650 mg Q4H PRN PO 08/05/16 11:15 (Zofran Inj) 4 mg Q6H PRN IVP 08/05/16 11:15 (Reglan Inj) 5 mg Q6H PRN IV PUSH 08/05/16 11:15 (Compazine Supp) 25 mg Q12H PRN OK 08/05/16 11:15 (Dulcolax Supp) 10 mg DAILY PRN OK 08/05/16 11:15 (Heparin Inj) 5,000 units Q12H SQ 08/05/16 12:00 08/05/16 12:27 (Narcan Inj) 0.4 mg UNSCH PRN IV 08/05/16 11:15 (Apresoline Inj) 20 mg Q4H PRN IV PUSH 08/05/16 11:30 (Ativan Inj) 0.5 mg Q6H PRN IV PUSH 08/05/16 11:30 (Catapres) 0.1 mg Q6H PRN PO 08/05/16 11:30 Acetaminophen/ Hydrocodone Bitart 1 tab 1 tab Q4H PRN PO 08/05/16 11:30 Pharmacy Profile Note 0 ml @ 0 mls/hr UNSCH XX 08/05/16 11:30 (Zosyn 3.375 Gm Premix) 50 ml @ 100 mls/hr Q6H IV 08/05/16 14:00 08/05/16 14:06 Miscellaneous 1 ea 1 ea UNSCH PRN OTHER 08/06/16 09:00 (Zithromax Inj/ NS 250 ml Inj) 250 ml @ 250 mls/hr Q24H IV 08/05/16 15:00 08/05/16 15:51 Miscellaneous Information ALL NURSING DEPARTME... UNSCH PRN XX 08/05/16 20:00 08/06/16 19:59 Family History Could not be obtained. Social History Resident of a shelter. Rest of details could not be obtained. Physical Exam Vital Signs Vital Signs Date Time Temp Pulse Resp B/P Pulse Ox O2 Delivery O2 Flow Rate FiO2 08/05/16 12:00 87 20 119/59 95 Nasal Cannula 08/05/16 10:47 20 08/05/16 10:02 106 22 125/60 95 Nasal Cannula 2 08/05/16 08:42 101 22 132/62 94 Nasal Cannula 2 08/05/16 08:42 94 Nasal Cannula 2 08/05/16 08:15 100 20 132/62 89 Room Air 08/05/16 06:57 102.1 08/05/16 06:33 Room Air 08/05/16 06:26 100.1 103 20 95/57 92 Physical Exam GENERAL: Elderly white, well-nourished,, well-developed patient, in no apparent distress. SKIN: No rashes. HEAD: Atraumatic. Normocephalic. No temporal or scalp tenderness. EYES: Pupils equal round and reactive. Extraocular motions intact. No scleral icterus. No injection or drainage. ENT: Nose without bleeding, purulent drainage or septal hematoma. Throat without erythema, tonsillar hypertrophy or exudate. Uvula midline. Airway patent. NECK: Trachea midline. Supple, nontender, no meningeal signs. CARDIOVASCULAR: Heart sounds audible. No murmur appreciated. RESPIRATORY: Clear to auscultation. Breath sounds equal bilaterally. No wheezes , rales, or rhonchi. GASTROINTESTINAL: Abdomen soft, non-tender, nondistended. ? Suprapubic tenderness. MUSCULOSKELETAL: Extremities without clubbing, cyanosis, or edema. No joint tenderness, effusion, or edema noted. No calf tenderness. Negative Homans sign bilaterally. NEUROLOGICAL: Was easily arousable. Confused. No obvious focal neurological deficit Psych cooperative IV line sites with no evidence of infection. Laboratory Laboratory Tests Test 08/05/16 08/05/16 07:15 10:40 White Blood Count 18.7 Red Blood Count 4.48 Hemoglobin 13.9 Hematocrit 42.0 Mean Corpuscular Volume 93.9 Mean Corpuscular Hemoglobin 31.1 Mean Corpuscular Hemoglobin 33.2 Concent Red Cell Distribution Width 15.7 Platelet Count 148 Mean Platelet Volume 8.1 Neutrophils (%) (Auto) 96.3 Lymphocytes (%) (Auto) 0.5 Monocytes (%) (Auto) 2.9 Eosinophils (%) (Auto) 0.0 Basophils (%) (Auto) 0.3 Neutrophils # (Auto) 18.0 Lymphocytes # (Auto) 0.1 Monocytes # (Auto) 0.5 Eosinophils # (Auto) 0.0 Basophils # (Auto) 0.1 CBC Comment DIFF FINAL Differential Comment Prothrombin Time 13.2 Prothromb Time International 1.2 Ratio Activated Partial 29.0 Thromboplast Time Urine Color BROWN Urine Turbidity CLOUDY Urine pH 5.5 Urine Specific Gerald 1.020 Urine Protein 100 Urine Glucose (UA) NEG Urine Ketones NEG Urine Occult Blood LARGE Urine Nitrite NEG Urine Bilirubin NEG Urine Urobilinogen 4.0 Urine Leukocyte Esterase LARGE Urine RBC Urine WBC Urine WBC Clumps MANY Urine Squamous Epithelial 8 Cells Urine Amorphous Sediment RARE Urine Bacteria MANY Microscopic Urinalysis Comment CATH-CULTURE IND Sodium Level 138 Potassium Level 4.7 Chloride Level 104 Carbon Dioxide Level 25.7 Anion Gap 8 Blood Urea Nitrogen 36 Creatinine 3.07 Estimat Glomerular Filtration 19 Rate Random Glucose 132 Lactic Acid Level 2.8 1.2 Calcium Level 8.2 Total Bilirubin 1.0 Aspartate Amino Transf 20 (AST/SGOT) Alanine Aminotransferase 16 (ALT/SGPT) Alkaline Phosphatase 128 Total Creatine Kinase 118 Troponin I LESS THAN 0.02 Total Protein 6.2 Albumin 2.6 Date/Time Procedure Status Source Growth 08/05/16 07:15 Urine Culture Received Urine Catheterized Urine Pending 08/05/16 07:15 Aerobic Blood Culture Received Blood Peripheral Pending 08/05/16 07:15 Anaerobic Blood Culture Received Blood Peripheral Pending Result Diagram: 08/05/16 0715 08/05/16 0715 Imaging Last Impressions Head CT 08/05/16 0626 Signed Impressions: Service Date/Time: July 07:08 - CONCLUSION: Intracranially normal for age with no change . Extensive sinus disease as described above John Schmitz MD Renal Ultrasound 08/05/16 0000 Signed Impressions: Service Date/Time: July 13:58 - CONCLUSION: 1. Bilateral renal cysts. No evidence of hydronephrosis. The renal cortex appears grossly normal thickness and echogenicity. Within the right kidney there is suggestion of 2 rounded areas of possibly solid lesions. The exam was limited secondary to patient's agitation. When clinically able recommend further evaluation to evaluate these lesions. 2. Complex avascular appearing material identified within the dependent portion of the bladder. Ida Garg MD Chest X-Ray 08/05/16 0000 Signed Impressions: Service Date/Time: July 06:35 - CONCLUSION: Mild right middle lobe infiltrate and left lower lung infiltrate. Jhony Wahl MD Assessment and Plan Assessment and Plan Severe sepsis present on admission UTI likely complicated patient has history of prostate cancer, urinary obstruction Pneumonia likely aspiration but could be atypical or community-acquired as well Acute metabolic encephalopathy: Has baseline dementia but also component of sepsis. Acute renal failure: Sepsis, urinary obstruction, baseline unknown. Thrombocytopenia likely sepsis related but medications are also be causing this Recommendations Continue azithromycin IV Continue Zosyn IV Continue Vanco IV for now will likely stop in a.m. Check urine legionella antigen check urinary strep pneumo antigen Check influenza antigen Follow cultures Follow clinically Erika Sapp MD Aug 05, 2016 15:28
--- NOTE | 2016-08-05 16:01 | RADRPT ---
EXAM DATE/TIME: 08/05/2016 13:58 [facility] COMPARISON: No previous studies available for comparison. INDICATIONS : Increased BUN/Creatinine. MEDICAL HISTORY : Hypothyroidism. Dementia. Hypertension. CAD. A-Fib. Gout. BPH. UTI. COPD. Depression. SURGICAL HISTORY : None. ENCOUNTER: Initial ACUITY: 1 day PAIN SCORE: Nonresponsive. LOCATION: Bilateral flank MEASUREMENTS: RIGHT KIDNEY: 11.1 x 4.9 x 6.7 cm LEFT KIDNEY: 11.3 x 6.2 x 5.0 cm FINDINGS: Multiple abnormalities are noted. RIGHT KIDNEY: The right kidney demonstrates multiple well-circumscribed anechoic simple appearing cysts. The larges t of which is seen within the lower pole of the right kidney measuring 7.8 x 7.6 x 7.6 cm. Within the midpole region of the right kidney there is a suggestion of 2 adjacent rounded solid possibly vascul ar massesmeasuring 2.5 x 2.2 x 1.8 cm and 2.0 x 2.2 x 2.6 cm. LEFT KIDNEY: The left renal cortex is normal thickness and echogenicity. There is a well-circumscribed simple appe aring cyst identified within the midpole region measuring 4.0 x 2.7 x 3.1 cm. Second adjacent smaller lesion measuring 2.2 cm. No evidence of hydronephrosis. BLADDER: The bladder demonstrates wall thickening and a complex avascular appearing cystic area identified wit hin the base of the bladder measuring 3.1 x 1.1 x 3.9 cm. CONCLUSION: 1. Bilateral renal cysts. No evidence of hydronephrosis. The renal cortex appears grossly normal thic kness and echogenicity. Within the right kidney there is suggestion of 2 rounded areas of possibly so lid lesions. The exam was limited secondary to patient's agitation. When clinically able recommend fu rther evaluation to evaluate these lesions. 2. Complex avascular appearing material identified within the dependent portion of the bladder. Ida Garg MD on August 05, 2016 at 15:50 Board Certified Radiologist. This report was verified electronically.
--- NOTE | 2016-08-05 17:16 | EKG ---
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 Can not exclude extension of anterior myoca rdial infarction. ABNORMAL ECG PREVIOUS TRACING : 08/05/2016 06.32 DOCTOR: Nabeel Rolon Interpretating Date/Time 08/05/2016 17:16:18
--- NOTE | 2016-08-05 19:21 | PD.OP ---
Operative Report Preoperative Diagnosis: (1) Urethral stricture (2) History of prostate cancer Postoperative Diagnosis: same Procedure: cystoscopy, urethral dilation, mendez catheter insertion Surgeon: Brandin Bird Artificial Candy Maker(s): n/a Operation and Findings: very narrow, tight membranous stricture, secondary to XRT. Leave mendez catheter in place. Void trial as outpatient. 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 Brandin Bird MD Aug 05, 2016 19:21
[2016-08-05] MEDS ORDERED: DO NOT ADM ANY ANTICOAGULANT DRUGS XX PRN (20:00)
[2016-08-05] MEDS: SODIUM CHLORIDE 0.9% FLUSH 5 ML FLUSH FLUSH SCH (21:00)
[2016-08-05] MEDS: DOCUSATE SODIUM 100 MG CAP PO SCH ×2 (21:00→21:40)
[2016-08-06] VITALS (11 sets, daily range): BP systolic 119–155; BP diastolic 59–73; PULSE 74–94; RESP 18–22; TEMP 97.3–97.9; O2SAT 92–95
[2016-08-06] MEDS: HEPARIN SODIUM - SQ 10,000 UNITS/ML VIAL SQ SCH ×2 (00:12→11:54)
[2016-08-06] MEDS: PIPERACIL-TAZO 3.375 GM PREMIX 50 ML IV SCH ×4 (01:44→22:06)
[2016-08-06] MEDS: LEVOTHYROXINE SODIUM 150 MCG TAB PO SCH (05:01)
[2016-08-06 08:08] LABS: AUTOMATED NEUTROPHIL # 11.5 TH/MM3 (1.8-7.7); BASOPHIL # 0.1 TH/MM3 (0-0.2); BASOPHIL % 0.4 % (0.0-2.0); EOSINOPHIL # 0.2 TH/MM3 (0-0.4); EOSINOPHIL % 1.6 % (0.0-4.0); HEMATOCRIT 35.5 % (39.0-51.0); HEMO FLAGS DIFF FINAL; LYMPH % 3.6 % (9.0-44.0); LYMPHOCYTE # 0.5 TH/MM3 (1.0-4.8); MEAN CELL VOLUME 94.1 FL (80.0-100.0); MEAN CORPUSCULAR HEMOGLOBIN 31.5 PG (27.0-34.0); MEAN CORPUSCULAR HGB CONC 33.5 % (32.0-36.0); MONO % 5.8 % (0.0-8.0); NEUT % 88.6 % (16.0-70.0); PLATELET COUNT 118 TH/MM3 (150-450); RED BLOOD COUNT 3.77 MIL/MM3 (4.50-5.90); RED CELL DISTRIBUTION WIDTH 15.2 % (11.6-17.2)
[2016-08-06 08:42] LABS: BICARBONATE 23.8 MEQ/L (21.0-32.0); POTASSIUM 3.9 MEQ/L (3.5-5.1)
[2016-08-06] MEDS: RESP: ALBUTEROL 2.5 MG/IPRATROPIUM 0.5 MG NEB (SCH) NEB ×4 (08:45→20:12)
[2016-08-06] MEDS: SODIUM CHLORIDE 0.9% FLUSH 5 ML FLUSH FLUSH SCH ×2 (08:50→21:00)
[2016-08-06] MEDS: SODIUM CHLOR 0.9% 1000 ML INJ 1,000 ML IV SCH (08:50)
[2016-08-06 08:55] LABS: CALCIUM-PROTEIN CORRECTED 8.5 MG/DL (8.5-10.1)
[2016-08-06] MEDS ORDERED: SILODOSIN 8 MG PO SCH (09:00)
[2016-08-06] MEDS ORDERED: PILL SPLITTER OTHER PRN (09:00)
[2016-08-06] MEDS: LIPASE/PROTEASE/AMYLASE (24,000/76,000/120,000) CAP PO SCH ×3 (09:00→17:14)
[2016-08-06] MEDS: DOCUSATE SODIUM 100 MG CAP PO SCH ×2 (09:00→22:06)
[2016-08-06] MEDS: CITALOPRAM HYDROBROMIDE 20 MG TAB PO SCH (09:00)
[2016-08-06] MEDS: TAMSULOSIN HCL 0.4 MG CAP PO SCH (09:00)
[2016-08-06] MEDS: DILTIAZEM-CD 120 MG CAP ER PO SCH (09:00)
[2016-08-06] MEDS: DONEPEZIL HCL 5 MG TAB PO SCH (09:00)
--- NOTE | 2016-08-06 09:36 | HHI.FPPN ---
Subjective Remarks EXCESS SPUTUM MORE ALERT LOOKS BETTER C/O SOB AGITATED CONFUSED BUT ALMOST TO BASELINE D/W RN Objective Vitals Vital Signs Date Time Temp Pulse Resp B/P Pulse Ox O2 Delivery O2 Flow Rate FiO2 08/06/16 08:46 93 08/06/16 08:06 97.3 93 22 137/65 94 08/06/16 05:00 92 08/06/16 04:00 97.9 76 18 119/59 95 08/06/16 00:00 97.3 75 18 127/60 93 08/05/16 20:15 97.8 80 16 117/58 94 08/05/16 19:30 92 12 167/63 92 Room Air 08/05/16 19:26 98.1 55 12 158/82 95 Room Air 08/05/16 18:11 86 20 111/58 94 Nasal Cannula 2 08/05/16 17:11 99.1 08/05/16 15:52 90 18 124/79 95 Nasal Cannula 2 08/05/16 12:00 87 20 119/59 95 Nasal Cannula 08/05/16 10:47 20 08/05/16 10:02 106 22 125/60 95 Nasal Cannula 2 I/O 08/05/16 08/05/16 08/05/16 08/06/16 08/06/16 08/06/16 07:00 15:00 23:00 07:00 15:00 23:00 Intake Total 500 ml Output Total 100 ml 200 ml Balance 400 ml -200 ml Intake Oral 0 ml Other 500 ml Output Urine Total 100 ml 200 ml Estimated Blood Loss 0 ml Other 0 ml # Bowel Movements 0 0 Result Diagram: 08/06/1632 08/06/16 0632 Objective Remarks GENERAL: SKIN: Warm and dry. HEAD: Atraumatic. Normocephalic. EYES: Pupils equal and round. No scleral icterus. No injection or drainage. ENT: No nasal bleeding or discharge. Mucous membranes pink and moist. NECK: Trachea midline. No JVD. CARDIOVASCULAR: Regular rate and rhythm. RESPIRATORY: Harsh cough, coughing up yellow sputum, crackles and ronchi in all case GASTROINTESTINAL: Abdomen soft, non-tender, nondistended. Hepatic and splenic margins not palpable. MUSCULOSKELETAL: Extremities without clubbing, cyanosis, or edema. No obvious deformities. NEUROLOGICAL: Awake and alert. No obvious cranial nerve deficits. Motor grossly within normal limits. 1 out of 5 muscle strength in the arms and legs. Normal speech. PSYCHIATRIC: Appropriate mood and affect; insight and judgment normal. Medications and IVs Current Medications Medications (Trade) Dose Ordered Sig/Gal Route Start Time Stop Time Status Last Admin (Colace) 100 mg BID PO 08/05/16 21:00 (Synthroid) 150 mcg DAILY@06 PO 08/06/16 06:00 (Milk Of Magnesia Liq) 30 ml Q12H PRN PO 08/05/16 12:00 (Flomax) 0.4 mg DAILY PO 08/06/16 09:00 (CeleXA) 10 mg DAILY PO 08/06/16 09:00 (Creon 24-76-120) 1 cap TID PO 08/05/16 13:00 (Cardizem Cd) 120 mg DAILY PO 08/06/16 09:00 (Aricept) 10 mg DAILY PO 08/06/16 09:00 Loperamide HCl 2 mg 2 mg Q6H PRN PO 08/05/16 11:45 (NS 1000 ml Inj) 1,000 ml @ 100 mls/hr Q10H IV 08/05/16 12:00 08/06/16 08:50 (NS Flush) 2 ml UNSCH PRN FLUSH 08/05/16 11:15 (NS Flush) 2 ml BID FLUSH 08/05/16 21:00 08/06/16 08:50 (Tylenol) 650 mg Q4H PRN PO 08/05/16 11:15 (Zofran Inj) 4 mg Q6H PRN IVP 08/05/16 11:15 (Reglan Inj) 5 mg Q6H PRN IV PUSH 08/05/16 11:15 (Compazine Supp) 25 mg Q12H PRN MS 08/05/16 11:15 (Dulcolax Supp) 10 mg DAILY PRN MS 08/05/16 11:15 (Heparin Inj) 5,000 units Q12H SQ 08/05/16 12:00 08/06/16 00:12 (Narcan Inj) 0.4 mg UNSCH PRN IV 08/05/16 11:15 (Apresoline Inj) 20 mg Q4H PRN IV PUSH 08/05/16 11:30 (Ativan Inj) 0.5 mg Q6H PRN IV PUSH 08/05/16 11:30 (Catapres) 0.1 mg Q6H PRN PO 08/05/16 11:30 Acetaminophen/ Hydrocodone Bitart 1 tab 1 tab Q4H PRN PO 08/05/16 11:30 Pharmacy Profile Note 0 ml @ 0 mls/hr UNSCH XX 08/05/16 11:30 (Zosyn 3.375 Gm Premix) 50 ml @ 100 mls/hr Q6H IV 08/05/16 14:00 08/06/16 08:50 Miscellaneous 1 ea 1 ea UNSCH PRN OTHER 08/06/16 09:00 (Zithromax Inj/ NS 250 ml Inj) 250 ml @ 250 mls/hr Q24H IV 08/05/16 15:00 08/05/16 15:51 Miscellaneous Information ALL NURSING DEPARTME... UNSCH PRN XX 08/05/16 20:00 08/06/16 19:59 (Vancomycin Inj/ NS 250 ml Inj) 262.5 ml @ 250 mls/hr Q24H IV 08/06/16 10:00 Miscellaneous Information SPECIFIC LAB TO BE PATITO... ONCE ONCE XX 08/09/16 09:45 08/09/16 09:46 A/P Assessment and Plan SEPSIS HCAP UTI URINARY OBSTRUCTION DUE TO XRT S/P OPERATIVE GONZALEZ PLACEMENT AUG 05, AJITH DEHYDRATION AFIB MODERATE DEMENTIA PLAN: IV ABX IVF MONITOR CULTURES GONZALEZ FOR NOW, MAY NEED SUPRAPUBIC PT OT [facility]PARIN BID FOR PROPHYLAXIS SEE MEDS ABOVE. DISPO: MAYBE BACK TO [facility] WITH HOSPICE WHEN STABLE. Raymundo Neil MD Aug 06, 2016 09:36
[2016-08-06] MEDS: VANCOMYCIN INJ 1,250 MG in SODIUM CHLOR 0.9% 250 ML INJ 250 ML IV SCH (10:37)
--- NOTE | 2016-08-06 15:38 | HHI.IDPN ---
Subjective Subjective Remarks Mr. John is an 85-year-old male who is a resident of a [facility] facility, history of prostate cancer status post external beam radiation and brachytherapy who presented from an assisted living facility as he was found on the floor with altered mental status. In ED difficult mendez placement. Urology saw patient and he is s/p cystoscopy, urethral dilation, mendez catheter insertion on 08/05/2016. Overnight events reviewed. No fevers No rash No diarrhea Patient is currently admitted on the floor Oriented There was dark blood in the Mendez catheter. RN taking care of the patient was notified and asked to notify Dr. Bird. Antibiotics Zosyn IV Vanco IV Azithromycin IV Lines Line sites with no evidence of infection. Past Medical History Past Medical History Prostate cancer status post radiation Possible urinary obstruction Hypertension Coronary artery disease Dementia History of COPD Atrial fibrillation Hypothyroidism Past Surgical History None per records. Allergies: Coded Allergies: No Known Allergies (Unverified , 08/05/16) Objective . Vital Signs Date Time Temp Pulse Resp B/P Pulse Ox O2 Delivery O2 Flow Rate FiO2 08/06/16 12:07 97.5 94 22 141/73 94 08/06/16 08:46 93 08/06/16 08:06 97.3 93 22 137/65 94 08/06/16 07:28 93 08/06/16 05:00 92 08/06/16 04:00 97.9 76 18 119/59 95 08/06/16 00:00 97.3 75 18 127/60 93 08/05/16 20:15 97.8 80 16 117/58 94 08/05/16 19:30 92 12 167/63 92 Room Air 08/05/16 19:26 98.1 55 12 158/82 95 Room Air 08/05/16 18:11 86 20 111/58 94 Nasal Cannula 2 08/05/16 17:11 99.1 08/05/16 15:52 90 18 124/79 95 Nasal Cannula 2 08/05/16 08/05/16 08/06/16 15:00 23:00 07:00 Intake Total 500 ml Output Total 100 ml 200 ml Balance 400 ml -200 ml Intake Oral 0 ml Other 500 ml Output Urine Total 100 ml 200 ml Estimated Blood Loss 0 ml Other 0 ml # Bowel Movements 0 0 . Laboratory Tests Test 08/05/16 08/06/16 07:15 06:32 White Blood Count 18.7 TH/MM3 13.0 TH/MM3 Red Blood Count 4.48 MIL/MM3 3.77 MIL/MM3 Hemoglobin 13.9 GM/DL 11.9 GM/DL Hematocrit 42.0 % 35.5 % Mean Corpuscular Volume 93.9 FL 94.1 FL Mean Corpuscular Hemoglobin 31.1 PG 31.5 PG Mean Corpuscular Hemoglobin 33.2 % 33.5 % Concent Red Cell Distribution Width 15.7 % 15.2 % Platelet Count 148 TH/MM3 118 TH/MM3 Mean Platelet Volume 8.1 FL 8.3 FL Neutrophils (%) (Auto) 96.3 % 88.6 % Lymphocytes (%) (Auto) 0.5 % 3.6 % Monocytes (%) (Auto) 2.9 % 5.8 % Eosinophils (%) (Auto) 0.0 % 1.6 % Basophils (%) (Auto) 0.3 % 0.4 % Neutrophils # (Auto) 18.0 TH/MM3 11.5 TH/MM3 Lymphocytes # (Auto) 0.1 TH/MM3 0.5 TH/MM3 Monocytes # (Auto) 0.5 TH/MM3 0.8 TH/MM3 Eosinophils # (Auto) 0.0 TH/MM3 0.2 TH/MM3 Basophils # (Auto) 0.1 TH/MM3 0.1 TH/MM3 CBC Comment DIFF FINAL DIFF FINAL Differential Comment Laboratory Tests Test 08/05/16 08/05/16 08/06/16 07:15 10:40 06:32 Sodium Level 138 MEQ/L 144 MEQ/L Potassium Level 4.7 MEQ/L 3.9 MEQ/L Chloride Level 104 MEQ/L 112 MEQ/L Carbon Dioxide Level 25.7 MEQ/L 23.8 MEQ/L Anion Gap 8 MEQ/L 8 MEQ/L Blood Urea Nitrogen 36 MG/DL 26 MG/DL Creatinine 3.07 MG/DL 1.14 MG/DL Estimat Glomerular Filtration 19 ML/MIN 61 ML/MIN Rate Random Glucose 132 MG/DL 67 MG/DL Lactic Acid Level 2.8 mmol/L 1.2 mmol/L Calcium Level 8.2 MG/DL 7.4 MG/DL Total Bilirubin 1.0 MG/DL Aspartate Amino Transf 20 U/L (AST/SGOT) Alanine Aminotransferase 16 U/L (ALT/SGPT) Alkaline Phosphatase 128 U/L Total Creatine Kinase 118 U/L Troponin I LESS THAN 0.02 NG/ML Total Protein 6.2 GM/DL 5.1 GM/DL Albumin 2.6 GM/DL Protein Corrected Calcium 8.5 MG/DL Microbiology Date/Time Procedure Status Source Growth 08/05/16 07:05 Aerobic Blood Culture - Preliminary Resulted Blood Peripheral NO GROWTH IN 1 DAY 08/05/16 07:05 Anaerobic Blood Culture - Preliminary Resulted Blood Peripheral NO GROWTH IN 1 DAY 08/05/16 07:15 Aerobic Blood Culture - Preliminary Resulted Blood Peripheral NO GROWTH IN 1 DAY 08/05/16 07:15 Anaerobic Blood Culture - Preliminary Resulted Blood Peripheral NO GROWTH IN 1 DAY 08/05/16 07:15 Urine Culture - Preliminary Resulted Urine Catheterized Urine IMMATURE GROWTH - REINCUBATE 08/05/16 07:15 Legionella Antigen - Final Complete Urine Random Urine PRESUMPTIVE NEGATIVE FOR LEGIONELLA P... 08/05/16 17:45 Influenza Types A,B Antigen (SUSY) - Final Complete Nasal Aspirate NEGATIVE FOR FLU A AND B ANTIGEN.... Imaging Last Impressions Head CT 08/05/16 0626 Signed Impressions: Service Date/Time: July 07:08 - CONCLUSION: Intracranially normal for age with no change . Extensive sinus disease as described above John Schmitz MD Renal Ultrasound 08/05/16 0000 Signed Impressions: Service Date/Time: July 13:58 - CONCLUSION: 1. Bilateral renal cysts. No evidence of hydronephrosis. The renal cortex appears grossly normal thickness and echogenicity. Within the right kidney there is suggestion of 2 rounded areas of possibly solid lesions. The exam was limited secondary to patient's agitation. When clinically able recommend further evaluation to evaluate these lesions. 2. Complex avascular appearing material identified within the dependent portion of the bladder. Ida Garg MD Chest X-Ray 08/05/16 0000 Signed Impressions: Service Date/Time: July 06:35 - CONCLUSION: Mild right middle lobe infiltrate and left lower lung infiltrate. Jhony Wahl MD Physical Exam GENERAL: Elderly white, well-nourished,, well-developed patient, in no apparent distress. SKIN: No rashes. HEAD: Atraumatic. Normocephalic. No temporal or scalp tenderness. EYES: Pupils equal round and reactive. Extraocular motions intact. No scleral icterus. No injection or drainage. ENT: Nose without bleeding, purulent drainage or septal hematoma. Throat without erythema, tonsillar hypertrophy or exudate. Uvula midline. Airway patent. NECK: Trachea midline. Supple, nontender, no meningeal signs. CARDIOVASCULAR: Heart sounds audible. No murmur appreciated. RESPIRATORY: Clear to auscultation. Breath sounds equal bilaterally. No wheezes , rales, or rhonchi. GASTROINTESTINAL: Abdomen soft, non-tender, nondistended. ? Suprapubic tenderness. MUSCULOSKELETAL: Extremities without clubbing, cyanosis, or edema. No joint tenderness, effusion, or edema noted. No calf tenderness. Negative Homans sign bilaterally. NEUROLOGICAL: Alert, talkative, No obvious focal neurological deficit Psych cooperative IV line sites with no evidence of infection. Assessment & Plan Remarks Severe sepsis present on admission UTI likely complicated patient has history of prostate cancer, urinary obstruction Pneumonia likely aspiration but could be atypical or community-acquired as well Acute metabolic encephalopathy: Has baseline dementia but also component of sepsis. Acute renal failure: Sepsis, urinary obstruction, baseline unknown. Thrombocytopenia likely sepsis related but medications are also be causing this Recommendations Change azithromycin to oral Continue Zosyn IV Continue Vanco IV for now will likely stop in a.m. Follow cultures Follow clinically Erika Sapp MD Aug 06, 2016 15:38
[2016-08-07] VITALS (11 sets, daily range): BP systolic 147–167; BP diastolic 65–94; PULSE 60–79; RESP 17–20; TEMP 97.3–98.5; O2SAT 93–98
[2016-08-07] MEDS: HEPARIN SODIUM - SQ 10,000 UNITS/ML VIAL SQ SCH ×2 (00:36→12:20)
[2016-08-07] MEDS: PIPERACIL-TAZO 3.375 GM PREMIX 50 ML IV SCH ×4 (02:30→20:27)
[2016-08-07] MEDS: LEVOTHYROXINE SODIUM 150 MCG TAB PO SCH (05:09)
[2016-08-07 07:24] LABS: AUTOMATED NEUTROPHIL # 9.4 TH/MM3 (1.8-7.7); BASOPHIL % 0.3 % (0.0-2.0); EOSINOPHIL # 0.3 TH/MM3 (0-0.4); HEMATOCRIT 34.6 % (39.0-51.0); HEMO FLAGS DIFF FINAL; LYMPH % 5.3 % (9.0-44.0); LYMPHOCYTE # 0.6 TH/MM3 (1.0-4.8); MEAN CELL VOLUME 92.9 FL (80.0-100.0); MEAN CORPUSCULAR HEMOGLOBIN 31.9 PG (27.0-34.0); MEAN CORPUSCULAR HGB CONC 34.3 % (32.0-36.0); NEUT % 84.4 % (16.0-70.0); PLATELET COUNT 113 TH/MM3 (150-450); RED BLOOD COUNT 3.72 MIL/MM3 (4.50-5.90); RED CELL DISTRIBUTION WIDTH 15.3 % (11.6-17.2); WHITE BLOOD COUNT 11.1 TH/MM3 (4.0-11.0)
[2016-08-07 07:38] LABS: BICARBONATE 25.5 MEQ/L (21.0-32.0); POTASSIUM 3.6 MEQ/L (3.5-5.1)
[2016-08-07] MEDS: RESP: ALBUTEROL 2.5 MG/IPRATROPIUM 0.5 MG NEB (SCH) NEB ×4 (07:48→20:20)
[2016-08-07 08:10] LABS: CALCIUM-PROTEIN CORRECTED 8.4 MG/DL (8.5-10.1)
[2016-08-07] MEDS: TAMSULOSIN HCL 0.4 MG CAP PO SCH (08:16)
[2016-08-07] MEDS: DONEPEZIL HCL 5 MG TAB PO SCH (08:16)
[2016-08-07] MEDS: LIPASE/PROTEASE/AMYLASE (24,000/76,000/120,000) CAP PO SCH ×3 (08:16→17:11)
[2016-08-07] MEDS: DOCUSATE SODIUM 100 MG CAP PO SCH ×2 (08:16→20:27)
[2016-08-07] MEDS: SODIUM CHLOR 0.9% 1000 ML INJ 1,000 ML IV SCH (08:16)
[2016-08-07] MEDS: DILTIAZEM-CD 120 MG CAP ER PO SCH (08:16)
[2016-08-07] MEDS: CITALOPRAM HYDROBROMIDE 20 MG TAB PO SCH (08:17)
[2016-08-07] MEDS: AZITHROMYCIN 250 MG TAB PO SCH (08:17)
[2016-08-07] MEDS: SODIUM CHLORIDE 0.9% FLUSH 5 ML FLUSH FLUSH SCH ×2 (08:24→20:29)
[2016-08-07] MEDS: VANCOMYCIN INJ 1,250 MG in SODIUM CHLOR 0.9% 250 ML INJ 250 ML IV SCH (09:06)
--- NOTE | 2016-08-07 11:24 | HHI.IDPN ---
Subjective Subjective Remarks ID COVERAGE Notes reviewed Temps ok Has mendez, urine looks better, no gross hematuria Called by RN for one (+) BC with [facility] Mr. John is an 85-year-old male who is a resident of a [facility] facility, history of prostate cancer status post external beam radiation and brachytherapy who presented from an assisted living facility as he was found on the floor with altered mental status. In ED difficult mendez placement. Urology saw patient and he is s/p cystoscopy, urethral dilation, mendez catheter insertion on 08/05/2016. Antibiotics Zosyn IV Vanco IV Azithromycin IV Lines Line sites with no evidence of infection. Past Medical History Past Medical History Prostate cancer status post radiation Possible urinary obstruction Hypertension Coronary artery disease Dementia History of COPD Atrial fibrillation Hypothyroidism Past Surgical History None per records. Allergies: Coded Allergies: No Known Allergies (Unverified , 08/05/16) Objective . Vital Signs Date Time Temp Pulse Resp B/P Pulse Ox O2 Delivery O2 Flow Rate FiO2 08/07/16 08:06 98.5 79 18 163/76 95 08/07/16 08:02 75 08/07/16 07:48 96 21 08/07/16 04:00 Room Air 08/07/16 04:00 97.4 73 18 167/78 95 08/07/16 00:00 98.0 79 20 147/65 93 08/07/16 00:00 Room Air 08/06/16 20:26 79 08/06/16 20:13 95 08/06/16 20:00 97.7 85 18 155/71 92 08/06/16 20:00 Room Air 08/06/16 16:04 97.9 74 20 136/63 93 08/06/16 12:07 97.5 94 22 141/73 94 08/06/16 08/06/16 08/07/16 15:00 23:00 07:00 Intake Total 120 ml 120 ml 509 ml Output Total 1400 ml 500 ml 475 ml Balance -1280 ml -380 ml 34 ml Intake Oral 120 ml 120 ml 120 ml IV Total 389 ml Output Urine Total 1400 ml 500 ml 475 ml # Bowel Movements 1 1 . Laboratory Tests Test 08/06/16 08/07/16 06:32 06:30 White Blood Count 13.0 TH/MM3 11.1 TH/MM3 Red Blood Count 3.77 MIL/MM3 3.72 MIL/MM3 Hemoglobin 11.9 GM/DL 11.9 GM/DL Hematocrit 35.5 % 34.6 % Mean Corpuscular Volume 94.1 FL 92.9 FL Mean Corpuscular Hemoglobin 31.5 PG 31.9 PG Mean Corpuscular Hemoglobin 33.5 % 34.3 % Concent Red Cell Distribution Width 15.2 % 15.3 % Platelet Count 118 TH/MM3 113 TH/MM3 Mean Platelet Volume 8.3 FL 8.4 FL Neutrophils (%) (Auto) 88.6 % 84.4 % Lymphocytes (%) (Auto) 3.6 % 5.3 % Monocytes (%) (Auto) 5.8 % 7.0 % Eosinophils (%) (Auto) 1.6 % 3.0 % Basophils (%) (Auto) 0.4 % 0.3 % Neutrophils # (Auto) 11.5 TH/MM3 9.4 TH/MM3 Lymphocytes # (Auto) 0.5 TH/MM3 0.6 TH/MM3 Monocytes # (Auto) 0.8 TH/MM3 0.8 TH/MM3 Eosinophils # (Auto) 0.2 TH/MM3 0.3 TH/MM3 Basophils # (Auto) 0.1 TH/MM3 0.0 TH/MM3 CBC Comment DIFF FINAL DIFF FINAL Differential Comment Laboratory Tests Test 08/06/16 08/07/16 06:32 06:30 Sodium Level 144 MEQ/L 142 MEQ/L Potassium Level 3.9 MEQ/L 3.6 MEQ/L Chloride Level 112 MEQ/L 109 MEQ/L Carbon Dioxide Level 23.8 MEQ/L 25.5 MEQ/L Anion Gap 8 MEQ/L 8 MEQ/L Blood Urea Nitrogen 26 MG/DL 15 MG/DL Creatinine 1.14 MG/DL 0.94 MG/DL Estimat Glomerular Filtration 61 ML/MIN 76 ML/MIN Rate Random Glucose 67 MG/DL 87 MG/DL Calcium Level 7.4 MG/DL 7.4 MG/DL Protein Corrected Calcium 8.5 MG/DL 8.4 MG/DL Total Protein 5.1 GM/DL 5.3 GM/DL Microbiology Date/Time Procedure Status Source Growth 08/05/16 07:05 Aerobic Blood Culture - Preliminary Resulted Blood Peripheral NO GROWTH IN 2 DAYS 08/05/16 07:05 Anaerobic Blood Culture - Preliminary Resulted Blood Peripheral NO GROWTH IN 2 DAYS 08/05/16 07:15 Aerobic Blood Culture - Preliminary Resulted Blood Peripheral Gram Positive Cocci 08/05/16 07:15 Anaerobic Blood Culture - Preliminary Resulted Gram Positive Cocci 08/05/16 07:15 Urine Culture - Preliminary Resulted Urine Catheterized Urine IMMATURE GROWTH - REINCUBATE 08/05/16 07:15 Legionella Antigen - Final Complete Urine Random Urine PRESUMPTIVE NEGATIVE FOR LEGIONELLA P... 08/05/16 17:45 Influenza Types A,B Antigen (SUSY) - Final Complete Nasal Aspirate NEGATIVE FOR FLU A AND B ANTIGEN.... Imaging Last Impressions Head CT 08/05/16 0626 Signed Impressions: Service Date/Time: July 07:08 - CONCLUSION: Intracranially normal for age with no change . Extensive sinus disease as described above John Schmitz MD Renal Ultrasound 08/05/16 0000 Signed Impressions: Service Date/Time: July 13:58 - CONCLUSION: 1. Bilateral renal cysts. No evidence of hydronephrosis. The renal cortex appears grossly normal thickness and echogenicity. Within the right kidney there is suggestion of 2 rounded areas of possibly solid lesions. The exam was limited secondary to patient's agitation. When clinically able recommend further evaluation to evaluate these lesions. 2. Complex avascular appearing material identified within the dependent portion of the bladder. Ida Garg MD Chest X-Ray 08/05/16 0000 Signed Impressions: Service Date/Time: July 06:35 - CONCLUSION: Mild right middle lobe infiltrate and left lower lung infiltrate. Jhony Wahl MD Physical Exam GENERAL: Awakens easily, NAD SKIN: No rashes. Dry. NO embolic lesion HEAD: Atraumatic. Normocephalic. No temporal or scalp tenderness. EYES: Pupils equal round and reactive. No scleral icterus. No injection or drainage. ENT: Nose without bleeding, or purulent drainage. Throat without erythema, or exudate. Airway patent. NECK: Trachea midline. Supple, nontender, no meningeal signs. CARDIOVASCULAR: Heart sounds audible. No murmur appreciated. RESPIRATORY: Clear to auscultation. Breath sounds equal bilaterally. No wheezes , rales, or rhonchi. GASTROINTESTINAL: Abdomen soft, non-tender, nondistended. MUSCULOSKELETAL: Extremities without clubbing, cyanosis, or edema. No joint effusion. No calf tenderness. NEUROLOGICAL: Alert, talkative, No obvious focal neurological deficit Psych cooperative IV line sites with no evidence of infection. Assessment & Plan Remarks Severe sepsis present on admission - has one (+) BC UTI likely complicated patient has history of prostate cancer, urinary obstruction Pneumonia likely aspiration but could be atypical or community-acquired as well Acute metabolic encephalopathy: Has baseline dementia but also component of sepsis. Acute renal failure: Sepsis, urinary obstruction, baseline unknown. Thrombocytopenia likely sepsis related but medications are also be causing this Recommendations Continue azithromycin Continue Zosyn IV Continue Vanco IV Repeat 2 BC today Follow cultures Monitor progress D/W Elena Glez MD Aug 07, 2016 11:24
--- NOTE | 2016-08-07 11:54 | HHI.PR ---
Subjective Remarks In bed, sleepy. However easily arousable. Alert and oriented x3. No fever or chills. Feels tired. Some nonproductive cough. No abd pain. Objective Vitals Vital Signs Date Time Temp Pulse Resp B/P Pulse Ox O2 Delivery O2 Flow Rate FiO2 08/07/16 08:06 98.5 79 18 163/76 95 08/07/16 08:02 75 08/07/16 08:00 Room Air 08/07/16 07:48 96 21 08/07/16 04:00 Room Air 08/07/16 04:00 97.4 73 18 167/78 95 08/07/16 00:00 98.0 79 20 147/65 93 08/07/16 00:00 Room Air 08/06/16 20:26 79 08/06/16 20:13 95 08/06/16 20:00 97.7 85 18 155/71 92 08/06/16 20:00 Room Air 08/06/16 16:04 97.9 74 20 136/63 93 08/06/16 12:07 97.5 94 22 141/73 94 I/O 08/06/16 08/06/16 08/06/16 08/07/16 08/07/16 08/07/16 07:00 15:00 23:00 07:00 15:00 23:00 Intake Total 120 ml 120 ml 509 ml Output Total 200 ml 1400 ml 500 ml 475 ml Balance -200 ml -1280 ml -380 ml 34 ml Intake Oral 120 ml 120 ml 120 ml IV Total 389 ml Output Urine Total 200 ml 1400 ml 500 ml 475 ml # Bowel Movements 0 1 1 Result Diagram: 08/07/1630 08/07/16 0630 Imaging Last Impressions Head CT 08/05/16 0626 Signed Impressions: Service Date/Time: July 07:08 - CONCLUSION: Intracranially normal for age with no change . Extensive sinus disease as described above John Schmitz MD Renal Ultrasound 08/05/16 0000 Signed Impressions: Service Date/Time: July 13:58 - CONCLUSION: 1. Bilateral renal cysts. No evidence of hydronephrosis. The renal cortex appears grossly normal thickness and echogenicity. Within the right kidney there is suggestion of 2 rounded areas of possibly solid lesions. The exam was limited secondary to patient's agitation. When clinically able recommend further evaluation to evaluate these lesions. 2. Complex avascular appearing material identified within the dependent portion of the bladder. Ida Garg MD Chest X-Ray 08/05/16 0000 Signed Impressions: Service Date/Time: July 06:35 - CONCLUSION: Mild right middle lobe infiltrate and left lower lung infiltrate. Jhony Wahl MD Objective Remarks GENERAL: Awakens easily, NAD SKIN: No rashes. Dry. NO embolic lesion HEAD: Atraumatic. Normocephalic. No temporal or scalp tenderness. EYES: Pupils equal round and reactive. No scleral icterus. No injection or drainage. ENT: Nose without bleeding, or purulent drainage. Throat without erythema, or exudate. Airway patent. NECK: Trachea midline. Supple, nontender, no meningeal signs. CARDIOVASCULAR: Heart sounds audible. No murmur appreciated. RESPIRATORY: Clear to auscultation. Breath sounds equal bilaterally. No wheezes , rales, or rhonchi. GASTROINTESTINAL: Abdomen soft, non-tender, nondistended. MUSCULOSKELETAL: Extremities without clubbing, cyanosis, or edema. No joint effusion. No calf tenderness. NEUROLOGICAL: Alert, talkative, No obvious focal neurological deficit A/P Assessment and Plan Severe sepsis present on admission - has one (+) BC UTI likely complicated patient has history of prostate cancer, urinary obstruction Pneumonia likely aspiration but could be atypical or community-acquired as well Continue azithromycin Continue Zosyn IV Continue Vanco IV Repeat Blood Cx 08/[address] Bello, appreciate recommendations Acute metabolic encephalopathy: Has baseline dementia but also component of sepsis. Improving. Acute renal failure: Sepsis, urinary obstruction, baseline unknown. Has mendez, good urine OP. Seen by urology Dr Bird, appreciate recommendations. Might need SP cath per Dr Bird. Thrombocytopenia likely sepsis related and/or medications SE DCT ppx SCD/TEDs , heparin SQ DC poss DC to [facility] back with hospice per Dr Neil his PCP Covering for Ingrid Monroe MD Aug 07, 2016 11:54
[2016-08-08] VITALS (8 sets, daily range): BP systolic 149–171; BP diastolic 71–82; PULSE 60–69; RESP 18–20; TEMP 97.1–97.8; O2SAT 94–98
[2016-08-08] MEDS: HEPARIN SODIUM - SQ 10,000 UNITS/ML VIAL SQ SCH ×2 (00:42→12:32)
[2016-08-08] MEDS: PIPERACIL-TAZO 3.375 GM PREMIX 50 ML IV SCH ×4 (00:44→20:38)
[2016-08-08] MEDS: LEVOTHYROXINE SODIUM 150 MCG TAB PO SCH (05:44)
[2016-08-08 06:58] LABS: AUTOMATED NEUTROPHIL # 6.4 TH/MM3 (1.8-7.7); BASOPHIL % 0.4 % (0.0-2.0); EOSINOPHIL # 0.4 TH/MM3 (0-0.4); HEMATOCRIT 37.5 % (39.0-51.0); HEMO FLAGS DIFF FINAL; LYMPH % 7.2 % (9.0-44.0); LYMPHOCYTE # 0.6 TH/MM3 (1.0-4.8); MEAN CELL VOLUME 93.9 FL (80.0-100.0); MEAN CORPUSCULAR HEMOGLOBIN 31.1 PG (27.0-34.0); MEAN CORPUSCULAR HGB CONC 33.1 % (32.0-36.0); MONO % 8.7 % (0.0-8.0); NEUT % 78.7 % (16.0-70.0); PLATELET COUNT 117 TH/MM3 (150-450); RED BLOOD COUNT 3.99 MIL/MM3 (4.50-5.90); RED CELL DISTRIBUTION WIDTH 15.1 % (11.6-17.2); WHITE BLOOD COUNT 8.2 TH/MM3 (4.0-11.0)
[2016-08-08 07:09] LABS: BICARBONATE 30.7 MEQ/L (21.0-32.0); POTASSIUM 3.2 MEQ/L (3.5-5.1)
[2016-08-08] MEDS: RESP: ALBUTEROL 2.5 MG/IPRATROPIUM 0.5 MG NEB (SCH) NEB ×4 (07:37→20:01)
[2016-08-08] MEDS: DOCUSATE SODIUM 100 MG CAP PO SCH ×2 (08:31→20:37)
[2016-08-08] MEDS: DILTIAZEM-CD 120 MG CAP ER PO SCH (08:31)
[2016-08-08] MEDS: CITALOPRAM HYDROBROMIDE 20 MG TAB PO SCH (08:31)
[2016-08-08] MEDS: TAMSULOSIN HCL 0.4 MG CAP PO SCH (08:31)
[2016-08-08] MEDS: SODIUM CHLOR 0.9% 1000 ML INJ 1,000 ML IV SCH (08:31)
[2016-08-08] MEDS: DONEPEZIL HCL 5 MG TAB PO SCH (08:31)
[2016-08-08] MEDS: LIPASE/PROTEASE/AMYLASE (24,000/76,000/120,000) CAP PO SCH ×3 (08:31→17:42)
[2016-08-08] MEDS: AZITHROMYCIN 250 MG TAB PO SCH (08:31)
[2016-08-08] MEDS: SODIUM CHLORIDE 0.9% FLUSH 5 ML FLUSH FLUSH SCH ×2 (08:32→20:39)
[2016-08-08] MEDS: VANCOMYCIN INJ 1,250 MG in SODIUM CHLOR 0.9% 250 ML INJ 250 ML IV SCH (09:29)
--- NOTE | 2016-08-08 11:24 | HHI.IDPN ---
Subjective Subjective Remarks ID COVERAGE Notes reviewed Temps ok Has mendez, urine clear One BC with [place] Strep Repeat BC negative so far WBC down to normal Mr. John is an 85-year-old male who is a resident of a [facility] facility, history of prostate cancer status post external beam radiation and brachytherapy who presented from an assisted living facility as he was found on the floor with altered mental status. In ED difficult mendez placement. Urology saw patient and he is s/p cystoscopy, urethral dilation, mendez catheter insertion on 08/05/2016. Antibiotics Zosyn IV Vanco IV Azithromycin IV Lines Line sites with no evidence of infection. Past Medical History Past Medical History Prostate cancer status post radiation Possible urinary obstruction Hypertension Coronary artery disease Dementia History of COPD Atrial fibrillation Hypothyroidism Past Surgical History None per records. Allergies: Coded Allergies: No Known Allergies (Unverified , 08/05/16) Objective . Vital Signs Date Time Temp Pulse Resp B/P Pulse Ox O2 Delivery O2 Flow Rate FiO2 08/08/16 08:36 97.8 67 20 171/76 96 08/08/16 08:00 Room Air 08/08/16 07:37 95 21 08/08/16 04:00 97.3 65 18 166/82 97 08/08/16 04:00 Room Air 08/07/16 23:51 97.5 67 17 150/68 98 08/07/16 23:51 Room Air 08/07/16 20:22 95 08/07/16 20:02 62 08/07/16 20:00 Room Air 08/07/16 20:00 97.3 60 18 149/94 97 08/07/16 16:17 98.0 63 20 163/74 96 08/07/16 12:07 98.4 74 20 152/70 96 08/07/16 08/07/16 08/08/16 15:00 23:00 07:00 Intake Total 1416 ml 792 ml 120 ml Output Total 1000 ml 500 ml 800 ml Balance 416 ml 292 ml -680 ml Intake Oral 600 ml 480 ml 120 ml IV Total 816 ml 312 ml Output Urine Total 1000 ml 500 ml 800 ml # Bowel Movements 1 1 1 . Laboratory Tests Test 08/07/16 08/08/16 06:30 06:10 White Blood Count 11.1 TH/MM3 8.2 TH/MM3 Red Blood Count 3.72 MIL/MM3 3.99 MIL/MM3 Hemoglobin 11.9 GM/DL 12.4 GM/DL Hematocrit 34.6 % 37.5 % Mean Corpuscular Volume 92.9 FL 93.9 FL Mean Corpuscular Hemoglobin 31.9 PG 31.1 PG Mean Corpuscular Hemoglobin 34.3 % 33.1 % Concent Red Cell Distribution Width 15.3 % 15.1 % Platelet Count 113 TH/MM3 117 TH/MM3 Mean Platelet Volume 8.4 FL 8.1 FL Neutrophils (%) (Auto) 84.4 % 78.7 % Lymphocytes (%) (Auto) 5.3 % 7.2 % Monocytes (%) (Auto) 7.0 % 8.7 % Eosinophils (%) (Auto) 3.0 % 5.0 % Basophils (%) (Auto) 0.3 % 0.4 % Neutrophils # (Auto) 9.4 TH/MM3 6.4 TH/MM3 Lymphocytes # (Auto) 0.6 TH/MM3 0.6 TH/MM3 Monocytes # (Auto) 0.8 TH/MM3 0.7 TH/MM3 Eosinophils # (Auto) 0.3 TH/MM3 0.4 TH/MM3 Basophils # (Auto) 0.0 TH/MM3 0.0 TH/MM3 CBC Comment DIFF FINAL DIFF FINAL Differential Comment Laboratory Tests Test 08/07/16 08/08/16 06:30 06:10 Sodium Level 142 MEQ/L 143 MEQ/L Potassium Level 3.6 MEQ/L 3.2 MEQ/L Chloride Level 109 MEQ/L 107 MEQ/L Carbon Dioxide Level 25.5 MEQ/L 30.7 MEQ/L Anion Gap 8 MEQ/L 5 MEQ/L Blood Urea Nitrogen 15 MG/DL 10 MG/DL Creatinine 0.94 MG/DL 0.81 MG/DL Estimat Glomerular Filtration 76 ML/MIN 90 ML/MIN Rate Random Glucose 87 MG/DL 103 MG/DL Calcium Level 7.4 MG/DL 7.6 MG/DL Protein Corrected Calcium 8.4 MG/DL Total Protein 5.3 GM/DL Microbiology Date/Time Procedure Status Source Growth 08/05/16 17:45 Influenza Types A,B Antigen (SUSY) - Final Complete Nasal Aspirate NEGATIVE FOR FLU A AND B ANTIGEN.... 08/07/16 14:32 Aerobic Blood Culture - Preliminary Resulted Blood Peripheral NO GROWTH IN 1 DAY 08/07/16 14:32 Anaerobic Blood Culture - Preliminary Resulted Blood Peripheral NO GROWTH IN 1 DAY 08/07/16 14:37 Aerobic Blood Culture - Preliminary Resulted Blood Peripheral NO GROWTH IN 1 DAY 08/07/16 14:37 Anaerobic Blood Culture - Preliminary Resulted Blood Peripheral NO GROWTH IN 1 DAY Imaging Last Impressions Head CT 08/05/16 0626 Signed Impressions: Service Date/Time: July 07:08 - CONCLUSION: Intracranially normal for age with no change . Extensive sinus disease as described above John Schmitz MD Renal Ultrasound 08/05/16 0000 Signed Impressions: Service Date/Time: July 13:58 - CONCLUSION: 1. Bilateral renal cysts. No evidence of hydronephrosis. The renal cortex appears grossly normal thickness and echogenicity. Within the right kidney there is suggestion of 2 rounded areas of possibly solid lesions. The exam was limited secondary to patient's agitation. When clinically able recommend further evaluation to evaluate these lesions. 2. Complex avascular appearing material identified within the dependent portion of the bladder. Ida Garg MD Chest X-Ray 08/05/16 0000 Signed Impressions: Service Date/Time: July 06:35 - CONCLUSION: Mild right middle lobe infiltrate and left lower lung infiltrate. Jhony Wahl MD Physical Exam GENERAL: Awake and alert, NAD SKIN: No rashes. Dry. No embolic lesion HEAD: Atraumatic. Normocephalic. No temporal or scalp tenderness. EYES: [place] conjunctiva. No petechia or hemorrhage. No scleral icterus. No injection or drainage. ENT: Nose without bleeding, or purulent drainage. Throat without erythema, or exudate. Airway patent. NECK: Trachea midline. Supple, nontender, no meningeal signs. CARDIOVASCULAR: Heart sounds audible. No murmur appreciated. RESPIRATORY: Clear to auscultation. Breath sounds equal bilaterally. No wheezes , rales, or rhonchi. GASTROINTESTINAL: Abdomen soft, non-tender, nondistended. MUSCULOSKELETAL: Extremities without clubbing, cyanosis, or edema. No joint effusion. No calf tenderness. NEUROLOGICAL: Grossly non-focal Psych cooperative IV line sites with no evidence of infection. Assessment & Plan Remarks Severe sepsis present on admission - has one (+) BC UTI likely complicated patient has history of prostate cancer, urinary obstruction Pneumonia likely aspiration but could be atypical or community-acquired as well Acute metabolic encephalopathy: Has baseline dementia but also component of sepsis. Acute renal failure: Sepsis, urinary obstruction, baseline unknown. Thrombocytopenia likely sepsis related but medications are also be causing this Recommendations Continue azithromycin Continue Zosyn IV Continue Vanco IV Follow cultures Monitor progress CXR tomorrow Elena Bello MD Aug 08, 2016 11:24
--- NOTE | 2016-08-08 12:36 | HHI.PR ---
Subjective Remarks In bed. Says he feesl tired. He is awake and alert, poor judgement. asking for food. Doesn't appear in acute distress. No n/v/d/c. Mendez with good UOP. No pain. No feevr or chills. No cough. Objective Vitals Vital Signs Date Time Temp Pulse Resp B/P Pulse Ox O2 Delivery O2 Flow Rate FiO2 08/08/16 12:16 97.6 68 20 149/72 94 08/08/16 12:07 69 08/08/16 08:36 97.8 67 20 171/76 96 08/08/16 08:00 Room Air 08/08/16 07:37 95 21 08/08/16 04:00 97.3 65 18 166/82 97 08/08/16 04:00 Room Air 08/07/16 23:51 97.5 67 17 150/68 98 08/07/16 23:51 Room Air 08/07/16 20:22 95 08/07/16 20:02 62 08/07/16 20:00 Room Air 08/07/16 20:00 97.3 60 18 149/94 97 08/07/16 16:17 98.0 63 20 163/74 96 I/O 08/07/16 08/07/16 08/07/16 08/08/16 08/08/16 08/08/16 07:00 15:00 23:00 07:00 15:00 23:00 Intake Total 776 ml 1416 ml 792 ml 120 ml Output Total 475 ml 1000 ml 500 ml 800 ml Balance 301 ml 416 ml 292 ml -680 ml Intake Oral 120 ml 600 ml 480 ml 120 ml IV Total 656 ml 816 ml 312 ml Output Urine Total 475 ml 1000 ml 500 ml 800 ml # Bowel Movements 1 1 1 Result Diagram: 08/08/16 0610 08/08/16 0610 Imaging Last Impressions Head CT 08/05/16 0626 Signed Impressions: Service Date/Time: July 07:08 - CONCLUSION: Intracranially normal for age with no change . Extensive sinus disease as described above John Schmitz MD Renal Ultrasound 08/05/16 0000 Signed Impressions: Service Date/Time: July 13:58 - CONCLUSION: 1. Bilateral renal cysts. No evidence of hydronephrosis. The renal cortex appears grossly normal thickness and echogenicity. Within the right kidney there is suggestion of 2 rounded areas of possibly solid lesions. The exam was limited secondary to patient's agitation. When clinically able recommend further evaluation to evaluate these lesions. 2. Complex avascular appearing material identified within the dependent portion of the bladder. Ida Garg MD Chest X-Ray 08/05/16 0000 Signed Impressions: Service Date/Time: July 06:35 - CONCLUSION: Mild right middle lobe infiltrate and left lower lung infiltrate. Jhony Wahl MD Objective Remarks GENERAL: Awakens easily, NAD SKIN: No rashes. Dry. NO embolic lesion HEAD: Atraumatic. Normocephalic. No temporal or scalp tenderness. EYES: Pupils equal round and reactive. No scleral icterus. No injection or drainage. ENT: Nose without bleeding, or purulent drainage. Throat without erythema, or exudate. Airway patent. NECK: Trachea midline. Supple, nontender, no meningeal signs. CARDIOVASCULAR: Heart sounds audible. No murmur appreciated. RESPIRATORY: Clear to auscultation. Breath sounds equal bilaterally. No wheezes , rales, or rhonchi. GASTROINTESTINAL: Abdomen soft, non-tender, nondistended. MUSCULOSKELETAL: Extremities without clubbing, cyanosis, or edema. No joint effusion. No calf tenderness. NEUROLOGICAL: Alert, talkative, No obvious focal neurological deficit A/P Assessment and Plan Severe sepsis present on admission - has one (+) BC UTI likely complicated patient has history of prostate cancer, urinary obstruction Pneumonia likely aspiration but could be atypical or community-acquired as well Continue azithromycin Continue Zosyn IV Continue Vanco IV Repeat Blood Cx 08/[address] Bello, appreciate recommendations Acute metabolic encephalopathy: Has baseline dementia but also component of sepsis. Improving. Acute renal failure: Sepsis, urinary obstruction, baseline unknown. Has mendez, good urine OP. Seen by urology Dr Bird, appreciate recommendations. Might need SP cath per Dr Bird. Thrombocytopenia likely sepsis related and/or medications SE DCT ppx SCD/TEDs , heparin SQ DC poss [facility] with hospice per Dr Neil his PCP Covering for Ingrid Monroe MD Aug 08, 2016 12:35
[2016-08-09] VITALS (8 sets, daily range): BP systolic 158–176; BP diastolic 71–81; PULSE 57–70; RESP 18–22; TEMP 97.2–98.2; O2SAT 94–98
[2016-08-09] MEDS: HEPARIN SODIUM - SQ 10,000 UNITS/ML VIAL SQ SCH ×3 (00:11→23:09)
[2016-08-09] MEDS: SODIUM CHLOR 0.9% 1000 ML INJ 1,000 ML IV SCH (00:52)
[2016-08-09] MEDS: PIPERACIL-TAZO 3.375 GM PREMIX 50 ML IV SCH ×2 (02:24→09:02)
[2016-08-09] MEDS: LEVOTHYROXINE SODIUM 150 MCG TAB PO SCH (05:47)
[2016-08-09] MEDS: RESP: ALBUTEROL 2.5 MG/IPRATROPIUM 0.5 MG NEB (SCH) NEB ×2 (08:00→11:36)
[2016-08-09] MEDS: DILTIAZEM-CD 120 MG CAP ER PO SCH (09:00)
[2016-08-09] MEDS: LIPASE/PROTEASE/AMYLASE (24,000/76,000/120,000) CAP PO SCH ×3 (09:02→17:58)
[2016-08-09] MEDS: AZITHROMYCIN 250 MG TAB PO SCH (09:03)
[2016-08-09] MEDS: DONEPEZIL HCL 5 MG TAB PO SCH (09:03)
[2016-08-09] MEDS: TAMSULOSIN HCL 0.4 MG CAP PO SCH (09:03)
[2016-08-09] MEDS: CITALOPRAM HYDROBROMIDE 20 MG TAB PO SCH (09:03)
[2016-08-09] MEDS: DOCUSATE SODIUM 100 MG CAP PO SCH ×2 (09:03→20:25)
--- NOTE | 2016-08-09 09:10 | RADRPT ---
EXAM DATE/TIME: 08/09/2016 08:42 [facility] COMPARISON: CHEST SINGLE AP, August 26, 2015, 10:08. CHEST SINGLE AP, August 05, 2016, 6:35. INDICATIONS : Follow up for infiltrates. MEDICAL HISTORY : Hypertension. Cardiovascular disease. SURGICAL HISTORY : None. ENCOUNTER: Subsequent ACUITY: 4 - 6 days PAIN SCORE: 0/10 LOCATION: Bilateral chest FINDINGS: There is persistent minimal patchiness or prominence of bronchovascular markings in the bases relativ lois stable dating back to August 2015 without consolidative infiltrates. 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 CONCLUSION: Stable chest as described John Schmitz MD on August 09, 2016 at 9:07 Board Certified Radiologist. This report was verified electronically.
[2016-08-09] MEDS: SODIUM CHLORIDE 0.9% FLUSH 5 ML FLUSH FLUSH SCH ×2 (09:15→20:26)
[2016-08-09] MEDS ORDERED: PHARMACY ORDERED LAB XX ONE (09:45)
--- NOTE | 2016-08-09 11:37 | HHI.FPPN ---
Subjective Remarks MORE ALERT PT STATES HE WANTS TO GET BETTER AND DOES NOT WANT HOSPICE RIGHT NOW D/W RN Objective Vitals Vital Signs Date Time Temp Pulse Resp B/P Pulse Ox O2 Delivery O2 Flow Rate FiO2 08/09/16 08:06 97.2 70 22 167/81 98 08/09/16 08:00 94 Nasal Cannula 21 08/09/16 04:00 97.9 62 18 171/74 95 08/09/16 00:00 97.8 60 18 169/71 95 08/08/16 20:01 94 08/08/16 20:00 Room Air 08/08/16 20:00 97.5 60 18 164/72 98 08/08/16 16:20 97.1 61 19 160/71 96 08/08/16 12:30 94 Room Air 21 08/08/16 12:16 97.6 68 20 149/72 94 08/08/16 12:07 69 I/O 08/08/16 08/08/16 08/08/16 08/09/16 08/09/16 08/09/16 07:00 15:00 23:00 07:00 15:00 23:00 Intake Total 120 ml 1009 ml 200 ml 818 ml Output Total 800 ml 1250 ml 625 ml 1200 ml Balance -680 ml -241 ml -425 ml -382 ml Intake Oral 120 ml 480 ml 200 ml 240 ml IV Total 529 ml 578 ml Output Urine Total 800 ml 1250 ml 625 ml 1200 ml # Bowel Movements 1 1 Result Diagram: 08/08/16 0610 08/08/16 0610 Objective Remarks GENERAL: SKIN: Warm and dry. HEAD: Atraumatic. Normocephalic. EYES: Pupils equal and round. No scleral icterus. No injection or drainage. ENT: No nasal bleeding or discharge. Mucous membranes pink and moist. NECK: Trachea midline. No JVD. CARDIOVASCULAR: Regular rate and rhythm. RESPIRATORY: Harsh cough, coughing up yellow sputum, crackles and ronchi in all case GASTROINTESTINAL: Abdomen soft, non-tender, nondistended. Hepatic and splenic margins not palpable. MUSCULOSKELETAL: Extremities without clubbing, cyanosis, or edema. No obvious deformities. NEUROLOGICAL: Awake and alert. No obvious cranial nerve deficits. Motor grossly within normal limits. 1 out of 5 muscle strength in the arms and legs. Normal speech. PSYCHIATRIC: Appropriate mood and affect; insight and judgment normal. Medications and IVs Current Medications Medications (Trade) Dose Ordered Sig/Gal Route Start Time Stop Time Status Last Admin (Colace) 100 mg BID PO 08/05/16 21:00 08/09/16 09:03 (Synthroid) 150 mcg DAILY@06 PO 08/06/16 06:00 08/09/16 05:47 (Milk Of Magnesia Liq) 30 ml Q12H PRN PO 08/05/16 12:00 (Flomax) 0.4 mg DAILY PO 08/06/16 09:00 08/09/16 09:03 (CeleXA) 10 mg DAILY PO 08/06/16 09:00 08/09/16 09:03 (Creon 24-76-120) 1 cap TID PO 08/05/16 13:00 08/09/16 09:02 (Cardizem Cd) 120 mg DAILY PO 08/06/16 09:00 08/09/16 09:00 (Aricept) 10 mg DAILY PO 08/06/16 09:00 08/09/16 09:03 Loperamide HCl 2 mg 2 mg Q6H PRN PO 08/05/16 11:45 (NS 1000 ml Inj) 1,000 ml @ 30 mls/hr Q24H IV 08/05/16 12:00 08/09/16 00:52 (NS Flush) 2 ml UNSCH PRN FLUSH 08/05/16 11:15 (NS Flush) 2 ml BID FLUSH 08/05/16 21:00 08/09/16 09:15 (Tylenol) 650 mg Q4H PRN PO 08/05/16 11:15 (Zofran Inj) 4 mg Q6H PRN IVP 08/05/16 11:15 (Reglan Inj) 5 mg Q6H PRN IV PUSH 08/05/16 11:15 (Compazine Supp) 25 mg Q12H PRN PA 08/05/16 11:15 (Dulcolax Supp) 10 mg DAILY PRN PA 08/05/16 11:15 (Heparin Inj) 5,000 units Q12H SQ 08/05/16 12:00 08/09/16 00:11 (Narcan Inj) 0.4 mg UNSCH PRN IV 08/05/16 11:15 (Apresoline Inj) 20 mg Q4H PRN IV PUSH 08/05/16 11:30 (Ativan Inj) 0.5 mg Q6H PRN IV PUSH 08/05/16 11:30 (Catapres) 0.1 mg Q6H PRN PO 08/05/16 11:30 08/07/16 16:10 Acetaminophen/ Hydrocodone Bitart 1 tab 1 tab Q4H PRN PO 08/05/16 11:30 Pharmacy Profile Note 0 ml @ 0 mls/hr UNSCH XX 08/05/16 11:30 (Zosyn 3.375 Gm Premix) 50 ml @ 100 mls/hr Q6H IV 08/05/16 14:00 08/09/16 09:02 Miscellaneous 1 ea 1 ea UNSCH PRN OTHER 08/06/16 09:00 (Vancomycin Inj/ NS 250 ml Inj) 262.5 ml @ 250 mls/hr Q24H IV 08/06/16 10:00 08/08/16 09:29 (Zithromax) 500 mg DAILY PO 08/07/16 09:00 08/10/16 08:59 08/09/16 09:03 A/P Assessment and Plan SEPSIS HCAP UTI URINARY OBSTRUCTION DUE TO XRT S/P OPERATIVE GONZALEZ PLACEMENT AUG 05, AJITH DEHYDRATION HYPOKALEMIA AFIB MODERATE DEMENTIA PLAN: IV ABX K REPLACEMENT IVF MONITOR CULTURES GONZALEZ FOR NOW, MAY NEED SUPRAPUBIC PT OT ST ID CONSULT UROLOGY CONSULT HEPARIN BID FOR PROPHYLAXIS SEE MEDS ABOVE. DISPO: MAYBE BACK TO NURSING HOME WITH OR WITHOUT HOSPICE WHEN STABLE. 3 Raymundo Neil MD Aug 09, 2016 11:37
[2016-08-09] MEDS ORDERED: NS + KCL 40 MEQ INJ 1,000 ML IV SCH (12:00)
--- NOTE | 2016-08-09 13:24 | HHI.IDPN ---
Subjective Subjective Remarks Mr. John is an 85-year-old male who is a resident of a group home facility, history of prostate cancer status post external beam radiation and brachytherapy who presented from an assisted living facility as he was found on the floor with altered mental status. In ED difficult mendez placement. Urology saw patient and he is s/p cystoscopy, urethral dilation, mendez catheter insertion on 08/05/2016. Temps ok Has mendez, urine clear One BC with Viridan Strep Repeat BC negative so far WBC down to normal Not eating much. Antibiotics Zosyn IV Vanco IV Azithromycin IV Lines Line sites with no evidence of infection. Past Medical History Past Medical History Prostate cancer status post radiation Possible urinary obstruction Hypertension Coronary artery disease Dementia History of COPD Atrial fibrillation Hypothyroidism Past Surgical History None per records. Allergies: Coded Allergies: No Known Allergies (Unverified , 08/05/16) Objective . Vital Signs Date Time Temp Pulse Resp B/P Pulse Ox O2 Delivery O2 Flow Rate FiO2 08/09/16 08:06 97.2 70 22 167/81 98 08/09/16 08:00 98 Room Air 08/09/16 08:00 94 Nasal Cannula 21 08/09/16 04:00 97.9 62 18 171/74 95 08/09/16 00:00 97.8 60 18 169/71 95 08/08/16 20:01 94 08/08/16 20:00 Room Air 08/08/16 20:00 97.5 60 18 164/72 98 08/08/16 16:20 97.1 61 19 160/71 96 08/08/16 08/08/16 08/09/16 15:00 23:00 07:00 Intake Total 1009 ml 200 ml 818 ml Output Total 1250 ml 625 ml 1200 ml Balance -241 ml -425 ml -382 ml Intake Oral 480 ml 200 ml 240 ml IV Total 529 ml 578 ml Output Urine Total 1250 ml 625 ml 1200 ml # Bowel Movements 1 . Laboratory Tests Test 08/08/16 06:10 White Blood Count 8.2 TH/MM3 Red Blood Count 3.99 MIL/MM3 Hemoglobin 12.4 GM/DL Hematocrit 37.5 % Mean Corpuscular Volume 93.9 FL Mean Corpuscular Hemoglobin 31.1 PG Mean Corpuscular Hemoglobin 33.1 % Concent Red Cell Distribution Width 15.1 % Platelet Count 117 TH/MM3 Mean Platelet Volume 8.1 FL Neutrophils (%) (Auto) 78.7 % Lymphocytes (%) (Auto) 7.2 % Monocytes (%) (Auto) 8.7 % Eosinophils (%) (Auto) 5.0 % Basophils (%) (Auto) 0.4 % Neutrophils # (Auto) 6.4 TH/MM3 Lymphocytes # (Auto) 0.6 TH/MM3 Monocytes # (Auto) 0.7 TH/MM3 Eosinophils # (Auto) 0.4 TH/MM3 Basophils # (Auto) 0.0 TH/MM3 CBC Comment DIFF FINAL Differential Comment Laboratory Tests Test 08/08/16 06:10 Sodium Level 143 MEQ/L Potassium Level 3.2 MEQ/L Chloride Level 107 MEQ/L Carbon Dioxide Level 30.7 MEQ/L Anion Gap 5 MEQ/L Blood Urea Nitrogen 10 MG/DL Creatinine 0.81 MG/DL Estimat Glomerular Filtration 90 ML/MIN Rate Random Glucose 103 MG/DL Calcium Level 7.6 MG/DL Microbiology Date/Time Procedure Status Source Growth 08/07/16 14:32 Aerobic Blood Culture - Preliminary Resulted Blood Peripheral NO GROWTH IN 2 DAYS 08/07/16 14:32 Anaerobic Blood Culture - Preliminary Resulted Blood Peripheral NO GROWTH IN 2 DAYS 08/07/16 14:37 Aerobic Blood Culture - Preliminary Resulted Blood Peripheral NO GROWTH IN 2 DAYS 08/07/16 14:37 Anaerobic Blood Culture - Preliminary Resulted Blood Peripheral NO GROWTH IN 2 DAYS Imaging Last Impressions Head CT 08/05/16 0626 Signed Impressions: Service Date/Time: July 07:08 - CONCLUSION: Intracranially normal for age with no change . Extensive sinus disease as described above John Schmitz MD Renal Ultrasound 08/05/16 0000 Signed Impressions: Service Date/Time: July 13:58 - CONCLUSION: 1. Bilateral renal cysts. No evidence of hydronephrosis. The renal cortex appears grossly normal thickness and echogenicity. Within the right kidney there is suggestion of 2 rounded areas of possibly solid lesions. The exam was limited secondary to patient's agitation. When clinically able recommend further evaluation to evaluate these lesions. 2. Complex avascular appearing material identified within the dependent portion of the bladder. Ida Garg MD Chest X-Ray 08/05/16 0000 Signed Impressions: Service Date/Time: July 06:35 - CONCLUSION: Mild right middle lobe infiltrate and left lower lung infiltrate. Jhony Wahl MD Physical Exam GENERAL: Awake and alert, NAD SKIN: No rashes. Dry. No embolic lesion HEAD: Atraumatic. Normocephalic. No temporal or scalp tenderness. EYES: [place] conjunctiva. No petechia or hemorrhage. No scleral icterus. No injection or drainage. ENT: Nose without bleeding, or purulent drainage. Throat without erythema, or exudate. Airway patent. NECK: Trachea midline. Supple, nontender, no meningeal signs. CARDIOVASCULAR: Heart sounds audible. No murmur appreciated. RESPIRATORY: Clear to auscultation. Breath sounds equal bilaterally. No wheezes , rales, or rhonchi. GASTROINTESTINAL: Abdomen soft, non-tender, nondistended. MUSCULOSKELETAL: Extremities without clubbing, cyanosis, or edema. No joint effusion. No calf tenderness. NEUROLOGICAL: Grossly non-focal Psych cooperative IV line sites with no evidence of infection. Assessment & Plan Remarks Severe sepsis present on admission - has one (+) BC Strep viridans bacteremia transient. UTI likely complicated patient has history of prostate cancer, urinary obstruction Pneumonia likely aspiration but could be atypical or community-acquired as well Acute metabolic encephalopathy: Has baseline dementia but also component of sepsis. Acute renal failure: Sepsis, urinary obstruction, baseline unknown. Thrombocytopenia likely sepsis related but medications are also be causing this Recommendations DC Azithro DC Zosyn IV DC Vanco IV Start ceftriaxone IV (stop date: 08/20/16) Start oral flagyl (stop date: 08/20/16) Follow cultures Monitor progress d/w Case management Will sign off please call back if any change in clinical condition or questions. If patient ready to go to facility please call so I can complete discharge infusion orders. Erika Sapp MD Aug 09, 2016 13:24
[2016-08-09] MEDS: metroNIDAZOLE 500 MG TAB PO SCH ×2 (14:00→22:20)
[2016-08-09] MEDS ORDERED: cefTRIAXone INJ 2,000 MG in SODIUM CHLORIDE 0.9% INJ 100 ML IV SCH (14:00)
[2016-08-10] VITALS: BP 166/78; PULSE 64; RESP 16; TEMP 97.4; O2SAT 91
[2016-08-10 03:44] VITALS: BP 171/77; PULSE 63; RESP 16; TEMP 98.1; O2SAT 93
[2016-08-10] MEDS: metroNIDAZOLE 500 MG TAB PO SCH (05:38)
[2016-08-10] MEDS: LEVOTHYROXINE SODIUM 150 MCG TAB PO SCH (05:38)
[2016-08-10 07:22] LABS: BICARBONATE 31.1 MEQ/L (21.0-32.0); POTASSIUM 3.3 MEQ/L (3.5-5.1)
[2016-08-10 07:34] LABS: AUTOMATED NEUTROPHIL # 6.2 TH/MM3 (1.8-7.7); BASOPHIL % 0.5 % (0.0-2.0); EOSINOPHIL # 0.6 TH/MM3 (0-0.4); EOSINOPHIL % 6.8 % (0.0-4.0); LYMPH % 10.7 % (9.0-44.0); LYMPHOCYTE # 0.9 TH/MM3 (1.0-4.8); MEAN CELL VOLUME 92.9 FL (80.0-100.0); MEAN CORPUSCULAR HEMOGLOBIN 31.4 PG (27.0-34.0); MEAN CORPUSCULAR HGB CONC 33.8 % (32.0-36.0); PLATELET COUNT 129 TH/MM3 (150-450); RED CELL DISTRIBUTION WIDTH 14.6 % (11.6-17.2); WHITE BLOOD COUNT 8.7 TH/MM3 (4.0-11.0)
[2016-08-10 07:36] LABS: HEMO FLAGS AUTO DIFF
[2016-08-10 08:00] VITALS: BP 163/72; PULSE 63; PULSE 65; RESP 18; TEMP 97.5; O2SAT 97
[2016-08-10] MEDS: DOCUSATE SODIUM 100 MG CAP PO SCH (08:42)
[2016-08-10] MEDS: DILTIAZEM-CD 120 MG CAP ER PO SCH (08:42)
[2016-08-10] MEDS: TAMSULOSIN HCL 0.4 MG CAP PO SCH (08:42)
[2016-08-10] MEDS: LIPASE/PROTEASE/AMYLASE (24,000/76,000/120,000) CAP PO SCH (08:43)
[2016-08-10] MEDS: DONEPEZIL HCL 5 MG TAB PO SCH (08:43)
[2016-08-10] MEDS: CITALOPRAM HYDROBROMIDE 20 MG TAB PO SCH (08:43)
[2016-08-10] MEDS: SODIUM CHLORIDE 0.9% FLUSH 5 ML FLUSH FLUSH SCH (08:43)
[2016-08-10 08:53] LABS: EOSINOPHILS 5 % (0-4); METAMYELOCYTES 2 % (0-1); NEUTROPHIL # MANUAL DIFF 6.3 TH/MM3 (1.8-7.7); PLATELET ESTIMATE SMEAR LOW (NORMAL); PLATELET MORPHOLOGY NORMAL (NORMAL); POLYS (SEG NEUTROPHILS) 70 % (16-70); SCAN/DIFF FINAL DIFF MANUAL; WBC DIFF SAMPLE 100
--- NOTE | 2016-08-10 11:41 | HHI.DS ---
Discharge Summary Admission Date Aug 05, 2016 at 09:25 Discharge Date: Aug 10, 2016 Admitting Diagnosis UTI, sepsis, AMS, pneumonia, enlarged prostate, acute renal failure (1) A-fib (2) Dehydration (3) Lactic acidosis (4) Acute renal failure (5) Sepsis (6) UTI (urinary tract infection) (7) Altered mental status (8) Pneumonia (9) Enlarged prostate Brief History 85 Y CM, FOUND DOWN IN HIS [facility] APT. APPEARS PT MAY BE ON HOSPICE. I CALLED [facility] YET NO ANSWER YET. PT SENT TO [facility] [place]. FOUND TO BE SEPTIC OUTLINED BELOW. I SPOKE WITH THE ER MD FOR ADMISSION. THEY WERE UNABLE TO PASS GONZALEZ AND SUGGESTED UROLOGIST. PT IS SEEN IN ER C POD. MUCH WEAKER THAN USUAL HE IS LETHARGIC AND NEAR COMATOSE. UNABLE TO OBTAIN HISTORY FROM HIM. SPOKE WITH RN HERE. CALLED OUT TO [facility]. CBC/BMP: 08/10/16 0625 08/10/16 0625 Significant Findings Laboratory Tests Test 08/08/16 08/10/16 06:10 06:25 Red Blood Count 3.99 MIL/MM3 4.20 MIL/MM3 (4.50-5.90) (4.50-5.90) Hemoglobin 12.4 GM/DL (13.0-17.0) Hematocrit 37.5 % (39.0-51.0) Platelet Count 117 TH/MM3 129 TH/MM3 (150-450) (150-450) Neutrophils (%) (Auto) 78.7 % 72.0 % (16.0-70.0) (16.0-70.0) Lymphocytes (%) (Auto) 7.2 % (9.0-44.0) Monocytes (%) (Auto) 8.7 % (0.0-8.0) 10.0 % (0.0-8.0) Eosinophils (%) (Auto) 5.0 % (0.0-4.0) 6.8 % (0.0-4.0) Lymphocytes # (Auto) 0.6 TH/MM3 0.9 TH/MM3 (1.0-4.8) (1.0-4.8) Potassium Level 3.2 MEQ/L 3.3 MEQ/L (3.5-5.1) (3.5-5.1) Calcium Level 7.6 MG/DL 8.0 MG/DL (8.5-10.1) (8.5-10.1) Eosinophils # (Auto) 0.6 TH/MM3 (0-0.4) Eosinophils % 5 % (0-4) Metamyelocytes 2 % (0-1) Platelet Estimate LOW (NORMAL) Blood Urea Nitrogen 6 MG/DL (7-18) PE at Discharge GENERAL: SKIN: Warm and dry. HEAD: Atraumatic. Normocephalic. EYES: Pupils equal and round. No scleral icterus. No injection or drainage. ENT: No nasal bleeding or discharge. Mucous membranes pink and moist. NECK: Trachea midline. No JVD. CARDIOVASCULAR: Regular rate and rhythm. RESPIRATORY: No accessory muscle use. Clear to auscultation. Breath sounds equal bilaterally. GASTROINTESTINAL: Abdomen soft, non-tender, nondistended. Hepatic and splenic margins not palpable. MUSCULOSKELETAL: Extremities without clubbing, cyanosis, or edema. No obvious deformities. NEUROLOGICAL: Awake and alert. No obvious cranial nerve deficits. Motor grossly within normal limits. 1 out of 5 muscle strength in the arms and legs. Normal speech. PSYCHIATRIC: Appropriate mood and affect; insight and judgment normal. Hospital Course 85 y cm, admit with Severe sepsis present on admission - has one (+) BC Strep viridans bacteremia transient. UTI likely complicated patient has history of prostate cancer, urinary obstruction Pneumonia likely aspiration but could be atypical or community-acquired as well Acute metabolic encephalopathy: Has baseline dementia but also component of sepsis. Acute renal failure: Sepsis, urinary obstruction, baseline unknown. Thrombocytopenia likely sepsis related but medications are also be causing this. PT REQS DC BACK TO [facility]. D/W DR BASURTO RX BELOW. Discharge Instructions Follow up Referrals: PCP Follow-up - 2 Weeks New Medications: Amoxicillin-Clavulanate (Augmentin) 500-125 mg Tab 500 MG PO Q8H Infection Days 10 Ref 0 TAB Metronidazole (Flagyl) 500 Mg Tab 500 MG PO Q8HR SEPS Days 11 Ref 0 TAB Continued Medications: Acetaminophen (Tylenol) 325 Mg Tab 650 MG PO Q6H PRN MILD PAIN Ref 0 TAB Albuterol Neb (Albuterol Neb) 2.5 Mg/3 Ml Neb 2.5 MG NEB Q2HR PRN SOB/WHEEZING #1 Ref 0 NEBULE Allopurinol (Allopurinol) 300 Mg Tab 300 MG PO DAILY Gout #30 Ref [address] (Aspirin Adult Low Strength) 81 Mg Tabdr 81 MG PO DAILY TAB Citalopram (Celexa) 10 Mg Tab 10 MG PO DAILY Control Depression #30 Ref 0 TAB Diltiazem CD 24 HR (Diltiazem CD 24 HR) 120 Mg Caper 120 MG PO DAILY #30 Ref 0 CAP Donepezil (Aricept) 10 Mg Tab 10 MG PO DAILY Dementia #30 Ref 0 TAB Levothyroxine (Levothyroxine) 175 Mcg Tab 175 MCG PO DAILY TAB Loperamide (Imodium A-D) 2 Mg Tab 2 MG PO Q6HR Not to exceed 8 tablets per day. PRN DIARRHEA Ref 0 TAB Magnesium Hydroxide Liq (Milk of Magnesia Liq) 400 Mg/5 Ml Susp 30 ML PO Q12HR PRN CONSTIPATION #1 Ref 0 BOTTLE Mirabegron (Myrbetriq) 50 Mg Tab 50 MG PO DAILY Urinary Symptom Managemen #30 Ref 0 TAB Nystatin Topical (Nystop Topical) 100,000 Unit/Gm Powd 1 APPLIC TOPICAL BID Apply to groin area PRN FUNGAL INFECTION Ref 0 TUBE Pancrelipase (Creon) 24,000-76,000-120,000 Units Cap 1 CAP PO TID Digestive Aid #90 Ref 0 CAP Potassium Chloride Microencaps (Klor-Con M20) 20 Meq Tab 20 MEQ PO DAILY Electrolyte Replacement #30 Ref 0 TAB Tamsulosin (Tamsulosin) 0.4 Mg Cap 0.4 MG PO DAILY Manage Prostate Problems #30 Ref 0 CAP Raymundo Neil MD Aug 10, 2016 11:41
[2016-08-10] MEDS ORDERED: METR-1 PO (11:44)
--- NOTE | 2016-08-10 11:46 | HHI.DCPOC ---
Discharge Care Plan Diagnosis: (1) Dehydration (2) Lactic acidosis (3) Acute renal failure (4) Sepsis (5) UTI (urinary tract infection) (6) Altered mental status (7) Pneumonia (8) Enlarged prostate (9) Atrial fibrillation, chronic Goals to Promote Your Health * To prevent worsening of your condition and complications * To maintain your health at the optimal level Directions to Meet Your Goals Take your medications as prescribed Follow your dietary instruction Follow activity as directed Keep your appointments as scheduled Take your immunizations and boosters as scheduled If your symptoms worsen call your PCP, if no PCP go to Urgent Care Center or Emergency Room Smoking is Dangerous to Your Health. Avoid second hand smoke Call the 24-hour hour crisis hotline for domestic abuse at Raymundo Neil MD Aug 10, 2016 11:45
[2016-08-10 12:00] VITALS: BP 161/72; PULSE 69; RESP 18; TEMP 97.2; O2SAT 18
[2016-08-10] MEDS ORDERED: AUGM500T7 PO (12:12)
[2016-08-10 15:15] VITALS: BP 163/75; PULSE 67; RESP 20; TEMP 98.5; O2SAT 96
--- NOTE | 2016-08-11 08:16 | MP ---
cc: JANETTE BUCK MD DATE OF SURGERY: 08/05/2016 PREOPERATIVE DIAGNOSIS 1. Difficult Sofia catheter placement. 2. Urethral stricture. 3. History of prostate cancer status post external beam radiation. 4. Urosepsis. POSTOPERATIVE DIAGNOSIS 1. Difficult Sofia catheter placement. 2. Urethral stricture. 3. History of prostate cancer status post external beam radiation. 4. Urosepsis. PROCEDURE PERFORMED 1. Cystourethroscopy. 2. Urethral dilation. 3. Sofia catheter placement. SURGEON [facility] ANESTHESIA General. COMPLICATIONS None. DRAINS 16-Iraqi Councill-tip catheter to gravity drainage. SPECIMENS None. ESTIMATED BLOOD LOSS Minimal. DISPOSITION Stable to Recovery. INDICATIONS The patient is an 85-year-old male with a history of prostate cancer status post external beam radiation therapy who was transferred to [facility] earlier today after being [facility]. Multiple attempts at Sofia catheter placement were unsuccessful. In the ER he was found to have an elevated white count as well as creatinine of 3, well off his baseline. He was also disoriented with altered mental status and had a fever of 103. At the bedside several attempts were again made to place a catheter by the urology team but was unsuccessful. Therefore, the patient presents this evening for urethral dilation and catheter placement. After the risks, benefits and alternatives were explained to his power of finance attorney informed consent was obtained. DETAILS OF PROCEDURE The patient was properly identified, brought back to the cystoscopy suite and laid supine on the cystoscopy table. A proper timeout was performed. Under direction of anesthesiology the patient was intubated and induced under general aesthetic. The patient had been receiving IV antibiotics therefore preoperative antibiotics were not indicated. The patient was placed in the dorsal lithotomy position, prepped and draped in standard surgical fashion. Using a rigid cystoscope I passed it into his urethra and came across a very tight narrow membranous stricture. Under direct visualization I was able to pass a Sensor wire directly through this stricture into his bladder. The scope was removed. I then dilated from a 12-Iraqi up to an 18-Iraqi with Medina dilators. The stricture was very night and narrow and did meet some significant resistance with each dilation, however, with each time I was able to get urine back. Following dilation to 18-Iraqi I then put the wire in place, passed a 16-Iraqi Councill-tip catheter over the wire into the patient's bladder. Purulent urine then was drained. The Sofia catheter was secured. This concluded the procedure. The patient was extubated and sent to Recovery in stable condition. He will be transferred back to floor for routine post-op care. Will go ahead and leave the catheter in place for a minimum of one week, but will recommend void trial as an outpatient. Will also discuss possible SP tube for long-term catheter management as the stricture is likely to recur with removal of the catheter. Janette Buck MD EMIona/CHRISTIAN /7:26 PM /7:52 AM
== END 2016-08-10 15:55 | DRG 871 ==
LOC: NEPC 06:23 → NEDA 09:25 → NEDH 14:01 → N04B 20:06
PROVIDERS: ADMIT Family Medicine; ATTEND Family Medicine
PROC: 0T7D8DZ Dilation of Urethra with Intraluminal Device, Via Natural or Artificial Opening Endoscopic (ICD-10-PCS; principal; 2016-08-05 18:38)
DX: A41.9 Sepsis, unspecified organism (principal); J18.9 Pneumonia, unspecified organism; N17.9 Acute kidney failure, unspecified; G93.41 Metabolic encephalopathy; E87.2 Acidosis; D69.6 Thrombocytopenia, unspecified; J44.0 Chronic obstructive pulmonary disease with (acute) lower respiratory infection; N39.0 Urinary tract infection, site not specified; I48.2 Chronic atrial fibrillation; F03.90 Unspecified dementia, unspecified severity, without behavioral disturbance, psychotic disturbance, mood disturbance, and anxiety; E86.0 Dehydration; N40.1 Benign prostatic hyperplasia with lower urinary tract symptoms; R65.20 Severe sepsis without septic shock; B95.4 Other streptococcus as the cause of diseases classified elsewhere; E03.9 Hypothyroidism, unspecified; E87.6 Hypokalemia; I10 Essential (primary) hypertension; I25.10 Atherosclerotic heart disease of native coronary artery without angina pectoris; M10.9 Gout, unspecified; N35.8 Other urethral stricture; R32 Unspecified urinary incontinence; Z85.46 Personal history of malignant neoplasm of prostate; Z92.3 Personal history of irradiation; H91.90 Unspecified hearing loss, unspecified ear
CPT/HCPCS: 70450; 71010; 71020; 76775; 80048; 80053; 80202; 81001; 82550; 83605; 84155; 84484; 85007; 85025; 85027; 85610; 85730; 87040; 87086; 87186; 87205; 87449; 87804; 93005; 94640; 94664; 96361; 96365; C1769; J0456; J0692; J0696; J1644; J2060; J2370; J2405; J2543; J3370; J3480; J7030; J7050; P9612